=== PATIENT | female | born 1995 | race Caucasian/White ===

== ENCOUNTER 2024-05-31 14:37 | Outpatient (CLI) | payer OTHER, SELFPAY ==
--- NOTE | 2024-05-31 16:35 | WPDPFTINT ---
PFT Procedure Performed PFT Procedure Performed Spirometry with Pre/Post Bronchodilator Plethysmography (Lung Vol) Diffusing Cap (DLCO) Flow Vol Loop PFT Interpretation This is a pulmonary function test with pre and post-bronchodilator spirometry, plethysmography and diffusing capacity. The test was performed and results interpreted in accordance with the 2019 and 2005 ATS/ERS Task Force guidelines respectively using the Global Lung Function Initiative-2012 reference equations. Patient demonstrated good effort and cooperation. Reproducibility criteria were met. The quality of the pre bronchodilator spirometry maneuver was Grade A and post bronchodilator spirometry maneuver was Grade A. Findings: Spirometry: The contour the inspiratory and expiratory flow tracing are normal. The pre bronchodilator FVC is 3.46 L, 101% predicted. The pre bronchodilator FEV1 is 2.84 L, 97% predicted. The pre bronchodilator FEV1: FVC ratio is 82%. The post bronchodilator FVC is 3.47 L, representing 1% increase. The post bronchodilator FEV1 is 2.39 L, representing a 16% decrease. The post bronchodilator FEV1: FVC ratio 69%. Plethysmography: The total lung capacity is 4.09 L, 89% predicted. The functional residual capacity is 1.17 L, 47% predicted. The residual volume is 0.56 L, 46% predicted. Diffusing capacity: The diffusing capacity unadjusted for hemoglobin and carboxyhemoglobin is 19.2, 81% predicted. The diffusing capacity adjusted for alveolar volume is 4.90, 97% predicted. Impression: The spirometry is normal without evidence of an obstructive abnormality. There is no significant improvement after inhaling a single dose of albuterol. The total lung capacity and residual volume are normal with a decreased functional residual capacity. This is an abnormal but nonspecific lung volume pattern. The diffusing capacity is normal. There are no prior studies for comparison
== END 2024-05-31 14:38 | disposition home or self-care (01) ==
PROVIDERS: PCP Internal Medicine; Visit Provider Physician Assistant
DX: J45.909 Unspecified asthma, uncomplicated (principal)
CPT/HCPCS: 94060; 94726; 94729

== ENCOUNTER 2024-09-24 08:52 | Emergency (ER) | payer OTHER, SELFPAY ==
[2024-09-24] VITALS (14 sets, daily range): BP systolic 115–146; BP diastolic 64–91; PULSE 90–119; RESP 14–21; TEMP 36.8; O2SAT 97–100
--- NOTE | ~2024-09-24 | CT_ITS ---
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 The dose-length product was 700.92 mGy-cm. Maximum intensity projection 3D-re constructions of the aorta and other arteries were constructed by the technologist on a separate work station. COMPARISON: None. FINDINGS/OBSERVATIONS: PULMONARY ARTERIES: No filling defect is identified within the main or proximal pulmonary artery. The main pulmonary artery is not enlarged. THORACIC AORTA: No aneurysmal dilatation or dissection is present. The great vessels are intact LUNGS: The lungs are clear. MEDIASTINUM: No morphologically suspicious or pathologically enlarged lymph nodes are identified with in the mediastinum or bilateral axilla. BONES OF THE CHEST: No acute fracture. No significant degenerative disease. No lytic or blastic lesions. HEART: The heart is of normal size, without pericardial effusion. IMPRESSION: No pulmonary embolus. No thoracic aortic dissection. The lungs are clear. Reviewed, dictated and finalized at location A. OOD PATCHER
--- NOTE | ~2024-09-24 | XR_ITS ---
CHEST RADIOGRAPH, PA AND LATERAL CLINICAL HISTORY: CHEST PAIN AND SOB . COMPARISON: None available TECHNIQUE: PA and lateral views of the chest. FINDINGS The cardiomediastinal silhouette is unremarkable. The lungs are clear. Visualized osseous structures and soft tissues are unremarkable. IMPRESSION: No focal infiltrate or effusion. Reviewed, dictated and finalized at location A. 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
--- NOTE | 2024-09-24 08:54 | ECG_ITS ---
Test Date: 2024-09-24 08:59:27 Measurements Intervals [place] Rate: 117 P: 62 CT: 110 QRS: -1 QRSD: 104 T: 20 QT: 327 QTc: 456 Interpretive Statements SINUS TACHYCARDIA WITH SHORT CT INTERVAL BORDERLINE R WAVE PROGRESSION, ANTERIOR LEADS MINIMAL Q WAVES- HIGH LATERAL LEADS BORDERLINE ST-T WAVE ABNORMALITY- ANT/INF LEADS ABNORMAL ECG No previous ECG available for comparison Electronically Signed On 09-24-2024 09:30:44 CERTIFIED NURSE PRACTITIONER by Jony Hardy D.O.
--- OUTSIDE RECORDS SUMMARY | 2024-09-24 08:54 | XMS_ITS | Clinical Summary ---
Author Organization [facility] Address [address] [place] [address] Care Team Providers Care Global Supply Chain Director Name Role Phone Teresa Cedeno MD Unavailable [phone] Teresa Cedeno MD Unavailable [phone] Nilda Franz Primary Care Pr ovider Allergies No known active allergies Medications vit 98-oxqt-icipp-dha 27mg iron- 800 mcg-250 mg capsule Take by mouth Active albuterol (PROAIR RESPICLICK) 90 mcg/actuation inhaler Inhale 2 puffs every 6 (six) hours as needed for wheezing Active acetaminophen (TYLENOL) 325 mg tabletIndications:P ain Take 2 tablets (650 mg total) by mouth every 4 (four) hours as needed for pain 30 tablet 2 Active docusate sodium (COLACE) 100 mg capsuleIndications: constipation,Stool Softener Take 1 capsule (100 mg total) by mouth 2 (two) times a day 2 Active ibuprofen (ADVIL,MOTRIN) 600 mg tabletIndications:C ramps Take 1 tablet (600 mg total) by mouth every 6 (six) hours as needed for pain 2 Active oxyCODONE (ROXICODONE) 5 mg immediate release tabletIndications:P ain Take 1 tablet (5 mg total) by mouth every 4 (four) hours as needed for pain 0 2 Active polyethylene glycol (MIRALAX) 17 gram packetIndications:c onstipation Take 1 packet (17 g total) by mouth daily 2 Active sertraline (ZOLOFT) 50 mg tablet Take 1 tablet (50 mg total) by mouth daily 90 tablet 3 3 Active ondansetron ODT (ZOFRAN-ODT) 4 mg disintegrating tablet Take 1 tablet (4 mg total) by mouth every 8 (eight) hours as needed for nausea or vomiting 20 tablet 1 3 Active Active Problems Problem Noted Date Diagnosed Date 39 weeks gestation of 06/01/2022 Contusion of heel 03/07/2009 Immunizations Immunization Administration Dates Next Due Pfizer SARS-CoV-2 Monovalent Vaccination (12+ Yrs) PURPLE 09/06/2020,08/16/2020 Surgical History Surgery Date Site/Laterality Comments WISDOM TOOTH EXTRACTION Bilateral Medical History Medical History Date Comments Asthma Anxiety Depression Vaginismus Social History Tobacco Use Types Packs/Day Years Used Date Smoking Tobacco: Never Passive Smoke Exposure: Never Smokeless Tobacco: Never Tobacco Cessation:Counseling Given: Not Answered Alcohol Use Standard Drinks/Week Comments Yes 0 (1 standard drink = 0.6 oz pur e alcohol) socially AUDIT-C Answer Date Recorded Q1: How often do you have a drink containing alcohol? Never 06/01/2022 Q2: How many drinks containi ng alcohol do you have on a typical day when you are drinking? Patient does not drink Q3: How often do you have si x or more drinks on one occasion? Never 06/01/2022 Sterling Depression Scale Answer Date Recorded Sterling Depression Scale Total 7 06/05/2022 The thought of harming myself has occurred to me . Never 06/05/2022 Personal Safety Answer Date Recorded Have you ever been in or are you currently in a harmful physical or emotional relationship or is someone making you feel afraid or unsafe? 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 ATTENDANT Gender Identity Not on file Sexual Orientation Not on file Obstetrics History Para Term AB IAB SAB Ectopic Multiple Livin g Live Births 1 1 1 0 1 1 Date Outcome GA Total Labor Labor/2nd/3rd Weight Sex Type Anes PTL Lauren A1 A5 Name Clin 022 Term 39w 1d 0h 01m 0h 01m 4.14 kg (9 lb 2 oz) F CS-LT ranv Epidu ral,C ombin ed Spina l/Epi dural N Livin g 9 9 NEMSK Y,GIR LBROO KE Syedatic Zackary gilbert MD Complications:Failure to Pro dylon in First Stage Delivery Location:This Facil ity ([facility]) Last Filed Vital Signs Vital Sign Reading Time Taken Comments Blood Pressure 143/90 02/08/2024 3:10 PM CDT Pulse 96 02/08/2024 3:10 PM CDT Temperature 36.4 C (97.5 F) 02/08/2024 12:23 PM CDT Respiratory Rate 18 02/08/2024 3:10 PM CDT Oxygen Saturation 100% 02/08/2024 3:10 PM CDT Inhaled Oxygen Concentration - - Weight 93 kg (205 lb) 02/08/2024 12:23 PM CDT Height 154.9 cm (5' 1 ) 06/01/2022 4:58 PM CDT Body Mass Index 38.73 06/01/2022 4:58 PM CDT Plan of Treatment Health Maintenance Due Date Last Done Comments Hepatitis C Screening 1995 DTaP/Tdap/Td Vaccine (1 - Tdap) 2005 Varicella Vaccines (1 of 2 - 13+ 2-dose series) 2007 Hepatitis B Screening 2012 Regular Well Visit/Exam 18-64 2012 Cervical Cancer Screening 11/04/2022 11/04/2021 Depression Screening 06/05/2023 06/05/2022 Covid-19 Vaccine (4 - 2023-2 5 season) 2024 07/22/2021, 09/06/2020, 08/16/2020 Influenza Vaccine (#1) 2024 HPV Vaccines Aged Out No longer eligi ble based on patient's age to complete this topic Pneumococcal vaccine <65 Aged Out No longer eligible based on patient's age to complete this topic Procedures Procedure Name Priority Date/Time Associated Diagnosis Comments PAP WITH REFLEX TO HIGH RISK HPV Routine 11/04/2021 2:38 PM CDT from Last 3 Months or Most Recently Relevant to Health Maintenance Results * Pap with reflex to High Risk HPV (11/04/2021 2:38 PM CDT) Pap test 11/04/2021 2:38 PM CDT 11/06/2021 2:28 PM CDT Narrative 11/09/2021 2:05 PM CDT EPIC results best viewed via link to PDF [address] [address] Tele: Louise Mensah MD - Multiple Punch Press Operator CYTOLOGY REPORT Note to Patients: This report may contain a detailed description of human tissue sent by a health care provider to the laboratory for pathologic evaluation. The content of this report is essential for diagnosis and may provide important critical findings. This information may be unfamiliar to patients to review without a medical professional present. It is advised that the patient review this report in the presence of a health care provider who can answer questions and explain the details. Patient Name: DEVORAH MADRIGAL Address: [address] [place] [address] Gender: F : 1995 (Age: 26) Service: Location: [facility] : [id number] [facility] #: [id number] Patient Type: [facility] SPECIMEN Taken: 11/04/2021 Reported: 11/09/2021 Physician(s): Teresa Cedeno M.D. FINAL DIAGNOSIS: Specimen Type: - ThinPrep Pap w/ reflex HPV Statement of Specimen Adequacy: Source: Cervical/Endocervical - Satisfactory for interpretation - Endocervical/Transformation zone component absent or insufficient - Scant Cellularity - Case screened using computer assisted imaging technology General Categorization: - Negative for intraepithelial lesion or malignancy jat/11/09/2021 14:05 TONY Medrano (ASCP) Report Reviewed and Electronically Signed By TONY Medrano (ASCP) Clerical Data Follow A; [id number] CLINICAL DIAGNOSIS AND HISTORY Last Menstrual Period: 09/01/21 REPORT IMAGES AND/OR SCANNED DOCUMENTS ONLY VIEWABLE IN PDF FORMAT The Pap test is a screening test used to aid in the detection of cervical cancer and its precursors. It should not be the sole means by which malignant and premalignant lesions are diagnosed. Both false negative and false positive results may occur. It also has poor sensitivity for the detection of endometrial lesions and should not be used to evaluate suspected endometrial abnormalities. For these reasons it is most important to obtain Pap tests at regular intervals, as recommended by your physician or nurse practitioner. Teresa Cedeno MD LAB CYTOLOGY ORDERAB LES Final Result from Last 3 Months or Most Recently Relevant to Health Maintenance Insurance [facility] [employer] Advance Directives For more information, please contact: [phone] * Full Code (Latest Code Status on File) Date Activated Date Inactivated Comments 06/02/2022 4:58 PM 06/06/2022 4:29 PM * Full Code Date Activated Date Inactivated Comments 06/01/2022 5:01 PM 06/02/2022 4:58 PM Full CPR in case of cardiopulmonary arrest Care Teams Global Supply Chain Director Relationship Specialty Start Date End Date Nilda Franz PA [address] [place] [address] PCP - General 11/25/23 Teresa Cedeno MD [address] [place] [address] Consulting Physician Obstetrics and Gynecology 06/05/22 Teresa Cedeno MD [address] [place] [address] Consulting Physician Obstetrics and Gynecology 06/11/23
--- OUTSIDE RECORDS SUMMARY | 2024-09-24 08:54 | XMS_ITS | Patient Health Summary ---
Author Organization [facility] Address [address] [place] [address] Care Team Providers Care Merchandise Displayer Name Role Phone Idalia Angel MD Primary Care Provider [phone] [facility],non-owned Affiliates and Associated Physician Practices is amultiple site organization consisting of ambulatory clinics and hospital sitesin [place], [place], [place] and [place]. This disclosure is being madepursuant to the Care Everywhere program and may not contain all information available regarding this patient. Last updated 18.[facility] Allergies No known active allergies Medications * Be aware that medications may not be up to date on this document. Alwaysverify current medications with the patient. * albuterol HFA (PROVENTIL;VENTOLIN;PROAIR) 108 (90 BASE) MCG/ACT inhaler (Started 06/19/2013) Inhale 2 Puffs by mouth every 4 hours as needed for Shortness of Breath or Wheezing. * ALPRAZolam (XANAX PO) * Albuterol Sulfate 108 (90 BASE) MCG/ACT * Norethin Enrique-Eth Estrad-FE (TAYTULLA) 1-20 MG-MCG(24) CAPS * buPROPion SR 12hr (WELLBUTRIN SR) 150 MG tablet Take 150 mg by mouth 2 times daily Social History Tobacco Use Types Packs/Day Years Used Date Smoking Tobacco: Never Smokeless Tobacco: Never Alcohol Use Standard Drinks/Week Comments No 0 (1 standard drink = 0.6 oz pur e alcohol) Sex and Gender Information Value Date Recorded Sex Assigned at Not on file Gender Identity Not on file Sexual Orientation Not on file Last Filed Vital Signs Vital Sign Reading Time Taken Comments Blood Pressure 112/76 09/17/2019 12:11 PM IRONWORKER APPRENTICE SHOP Pulse 94 09/17/2019 12:11 PM IRONWORKER APPRENTICE SHOP Temperature 36.9 C (98.4 F) 09/17/2019 12:11 PM IRONWORKER APPRENTICE SHOP Respiratory Rate 17 09/17/2019 12:11 PM IRONWORKER APPRENTICE SHOP Oxygen Saturation 98% 09/17/2019 12:11 PM IRONWORKER APPRENTICE SHOP Inhaled Oxygen Concentration - - Weight 79.4 kg (175 lb) 09/17/2019 12:11 PM IRONWORKER APPRENTICE SHOP Height 154.9 cm (5' 1 ) 09/17/2019 12:11 PM IRONWORKER APPRENTICE SHOP Body Mass Index 33.07 09/17/2019 12:11 PM IRONWORKER APPRENTICE SHOP Procedures * INFLUENZA A+B - POINT OF CARE (AMB)(Performed 09/17/2019) Performed for Influenza B * STREP A SCREEN - POINT OF CARE (AMB) STL(Performed 01/18/2018) Performed for Acute streptococcal pharyngitis * STREP A SCREEN - POINT OF CARE (AMB) STL(Performed 12/21/2017) Performed for Acute streptococcal pharyngitis * STREP A SCREEN - POINT OF CARE (AMB) STL(Performed 11/01/2017) Performed for Nasopharyngitis acute * STREP A SCREEN - POINT OF CARE (AMB) STL(Performed 08/11/2017) Performed for Acute streptococcal pharyngitis * INFLUENZA A+B - POINT OF CARE (AMB)(Performed 08/11/2017) Performed for Acute streptococcal pharyngitis * STREP A SCREEN - POINT OF CARE (AMB) STL(Performed 07/09/2017) Performed for Acute streptococcal pharyngitis * STREP A SCREEN - POINT OF CARE (AMB) STL(Performed 01/14/2017) Performed for Acute streptococcal pharyngitis * EKG 12-LEAD(Performed 06/19/2013) Performed for Cough * XR CHEST 2VW(Performed 06/19/2013) Performed for Cough * D-DIMER(Performed 06/19/2013) * CBC W AUTO DIFFERENTIAL(Performed 06/19/2013) * HCG URINE QUALITATIVE - POINT OF CARE(Performed 06/19/2013) Results * (ABNORMAL) INFLUENZA A+B - POINT OF CARE (AMB) (09/17/2019) Only the most recent of2 resultswithin the time period is included. Influenza A Antigen Rapid Negative Negative Influenza B Antigen Rapid Positive(A) Negative Influenza Internal Control PRESENT NEGATIVE - POSITIVE Influenza Lot Number [id number] Influenza Expiration Date 06/20/2020 Other NASOPHARYNGEAL SWAB / Unknown 09/17/2019 Malika Faulkner [facility] - POINT OF CARE ORDERABLES * (ABNORMAL) STREP A SCREEN - POINT OF CARE (AMB) STL (01/18/2018) Only the most recent of6 resultswithin the time period is included. Pathologist [facility] Strep A Rapid POCT Positive(A) Negative Strep A Internal Control Present Lot # [id number] Expiration Date 07/21/19 Throat ENTIRE THROAT (SURFACE REGION OF NECK) / Unknown 01/18/2018 [facility] POINT [facility]ARE ORDERABLES * EKG 12-LEAD (06/19/2013 12:30 PM IRONWORKER APPRENTICE SHOP) Ventricular Rate 81 BPM [facility] Atrial Rate 81 BPM [facility] P-R Interval 102 ms [facility] QRS Duration ms 92 ms [facility] Q-T Interval ms 396 ms [facility] QTC Calculation (Bezet) 460 ms [facility] Calculated P Ethan 13 degrees [facility] Calculated R Ethan 62 degrees [facility] Calculated T Ethan 26 degrees [facility] Interpretation EKG Sinus rhythm with short ME Otherwise normal ECG No previous ECGs available Confirmed by MD PAO, DOV ([id number]) on 06/19/2013 3:38:10 PM [facility] 06/19/2013 12:3 0 PM IRONWORKER APPRENTICE SHOP 06/19/2013 3:38 PM IRONWORKER APPRENTICE SHOP Narrative [facility] - 06/19/2013 3:38 PM IRONWORKER APPRENTICE SHOP Procedure Note Document, Scanned - 06/19/2013 3:37 PM CST Transcriptions Document, Scanned - 06/19/2013 3:39 PM CST Marlene SANDOVAL-C ECG ORDERABLES [facility] * CXR - PA & LATERAL (06/19/2013 12:03 PM IRONWORKER APPRENTICE SHOP) Anatomical Region Laterality Modality Chest Radiographic Melinda ging 06/19/2013 12:0 4 PM IRONWORKER APPRENTICE SHOP Impressions 06/19/2013 12:05 PM IRONWORKER APPRENTICE SHOP No acute disease in the chest. Narrative 06/19/2013 12:05 PM IRONWORKER APPRENTICE SHOP PA AND LATERAL CHEST INDICATION: Cough shortness of breath FINDINGS: The lungs are clear. The mediastinal contour and heart size are within normal limits. The pulmonary vascularity is normal. The osseous structures are unremarkable. Procedure Note Era Stovall MD - 06/19/2013 PA AND LATERAL CHEST INDICATION: Cough shortness of breath FINDINGS: The lungs are clear. The mediastinal contour and heart size are within normal limits. The pulmonary vascularity is normal. The osseous structures are unremarkable. IMPRESSION No acute disease in the chest. Marlene [facility] O RDERABLES * D-DIMER (06/19/2013 11:55 AM IRONWORKER APPRENTICE SHOP) D-Dimer 0.43 0 - 0.5 mg/L FEU 06/19/2013 12:13 PM IRONWORKER APPRENTICE SHOP [facility] Blood BLOOD SPECIMEN / Unknown 06/19/2013 11:55 AM IRONWORKER APPRENTICE SHOP 06/19/2013 11:58 AM IRONWORKER APPRENTICE SHOP Narrative [facility] - 06/19/2013 12:13 PM IRONWORKER APPRENTICE SHOP The innovance D-dimer assay now in use at [facility], [facility] and [facility] is intended for use as an aid in diagnosis of venous thromboembolism [(VTE): deep vein thrombosis (DVT), pulmonary embolism (PE), and disseminated intravascular coagulation (DIC)], and has received FDA approval to exclude VTE in patients with low or moderate pretest probability of PE or DVT (per Wells' rules). At a clinical cut-off value 0.50 mg/L FEU, the Negative Predictive Value of this assay is 99.8% for excluding PE and 100% for excluding DVT. A very low percentage of patients with VTE may yield D-dimer results below cut- off value. An elevated D-dimer result has low specificity (40.4% for PE, 35.5% for DVT) and is a poor predictor of VTE. An elevated D-dimer result may indicate DIC in the appropriate clinical setting. Results of this test should always be interpreted in conjunction with the patient's medical history, clinical presentation, and other findings. Marlene Richard PA-C LAB - COAGULATION OR DERABLES Performing Organization Address City/State/[facility] Co de Phone Number [facility] [address] [place] [address] * (ABNORMAL) CBC W AUTO DIFFERENTIAL (06/19/2013 11:55 AM IRONWORKER APPRENTICE SHOP) WBC 6.3 4.5 - 11.0 x10^9/L 06/19/2013 12:11 PM [facility] RBC 4.20 4.10 - 5.10 x10^12/L 06/19/2013 12:11 PM [facility] Hemoglobin 12.8 12.0 - 16.0 gm/dL 06/19/2013 12:11 PM [facility] Hematocrit 35.0(L) 36.0 - 47.0 % 06/19/2013 12:11 PM [facility] MCV 83.3 78.0 - 102.0 fl 06/19/2013 12:11 PM [facility] MCH 30.5 25.0 - 35.0 pg 06/19/2013 12:11 PM [facility] MCHC 36.6 31.0 - 37.0 gm/dL 06/19/2013 12:11 PM [facility] Platelet Count 248 100 - 400 x10^9/L 06/19/2013 12:11 PM [facility] RDW-CV 11.7 11.5 - 14.0 % 06/19/2013 12:11 PM [facility] MPV 9.2 6.0 - 9.5 fl 06/19/2013 12:11 PM [facility] Neutrophils % 55.4 31.0 - 78.0 % 06/19/2013 12:11 PM IRONWORKER APPRENTICE SHOP [facility] Lymphocytes % 34.7 13.0 - 54.0 % 06/19/2013 12:11 PM IRONWORKER APPRENTICE SHOP [facility] Monocytes % 5.9 4.0 - 13.0 % 06/19/2013 12:11 PM IRONWORKER APPRENTICE SHOP [facility] Eosinophils % 3.3 0.0 - 8.0 % 06/19/2013 12:11 PM IRONWORKER APPRENTICE SHOP [facility] Basophils % 0.5 % 06/19/2013 12:11 PM IRONWORKER APPRENTICE SHOP [facility] Immature Granulocytes 0.2 % 06/19/2013 12:11 PM IRONWORKER APPRENTICE SHOP [facility] Neutrophil Absolute 3.49 x10^9/L 06/19/2013 12:11 PM IRONWORKER APPRENTICE SHOP [facility] Lymphocytes Absolute 2.18 x10^9/L 06/19/2013 12:11 PM IRONWORKER APPRENTICE SHOP [facility] Monocytes Absolute 0.37 x10^9/L 06/19/2013 12:11 PM IRONWORKER APPRENTICE SHOP [facility] Eosinophils Absolute 0.21 x10^9/L 06/19/2013 12:11 PM IRONWORKER APPRENTICE SHOP [facility] Basophils Absolute 0.03 x10^9/L 06/19/2013 12:11 PM IRONWORKER APPRENTICE SHOP [facility] Immature Granulocytes Absolute 0.01 x10^9/L 06/19/2013 12:11 PM IRONWORKER APPRENTICE SHOP [facility] Blood BLOOD SPECIMEN / Unknown 06/19/2013 11:55 AM IRONWORKER APPRENTICE SHOP 06/19/2013 11:58 AM IRONWORKER APPRENTICE SHOP Marlene Richard PA-C LAB - HEMATOLOGY ORD ERABLES [facility] [address] [place] [address] * HCG URINE QUALITATIVE - POINT OF CARE (IP) (06/19/2013 11:54 AM IRONWORKER APPRENTICE SHOP) HCG Qual Urine Negative Negative [facility] PO[facility] QC Verified yes Yes [facility] POC T TESTING Urine specimen (specimen) URINE / Unknown 06/19/2013 11:54 AM IRONWORKER APPRENTICE SHOP Marlene Richard PA-C LAB - POINT OF CARE ORDERABLES Performing Organization Address City/[facility]/ZIP Co de Phone Number [facility] [address] [place] [address] Care Teams Merchandise Displayer Relationship Specialty Start Date End Date Idalia Angel MD PCP - General Economics Faculty Member 09/17/19
--- OUTSIDE RECORDS SUMMARY | 2024-09-24 08:54 | XMS_ITS | Clinical Summary ---
Author Organization [facility] Address [facility] [place] [address] Care Team Providers Care Detail Drafter Name Role Phone Idalia Angel MD Primary Care Provider [phone] Allergies No known active allergies Medications desvenlafaxine ER 50 MG 24 hr tablet Take 50 mg by mouth daily. Active Family History Medical History Relation Comments Hyperlipidemia Father Hypertension Father Hyperlipidemia Mother Relation Status Comments Father Mother Social History Tobacco Use Types Packs/Day Years Used Date Smoking Tobacco: Never Smokeless Tobacco: Never Alcohol Use Standard Drinks/Week Comments Yes 0 (1 standard drink = 0.6 oz pur e alcohol) AUDIT-C Answer Date Recorded Q1: How often do you have a drink containing alc ohol? Never 08/03/2020 Average Number of Drinks Not on file 020 Frequency of Binge Drinking Not on file 07/10 Comments No Sex and Gender Information Value Date Recorded Sex Assigned at Not on file Legal Sex Female 9:17 AM LANG PATH THERAPIST Gender Identity Not on file Sexual Orientation Not on file Last Filed Vital Signs Vital Sign Reading Time Taken Comments Blood Pressure 151/88 08/03/2020 9:36 AM LANG PATH THERAPIST Pulse 84 08/03/2020 9:36 AM LANG PATH THERAPIST Temperature 36.8 C (98.2 F) 08/03/2020 9:36 AM LANG PATH THERAPIST Respiratory Rate 16 08/03/2020 9:36 AM LANG PATH THERAPIST Oxygen Saturation 98% 08/03/2020 9:36 AM LANG PATH THERAPIST Inhaled Oxygen Concentration - - Weight 81.6 kg (180 lb) 08/03/2020 9:36 AM LANG PATH THERAPIST Height 154.9 cm (5' 1 ) 08/03/2020 9:36 AM LANG PATH THERAPIST Body Mass Index 34.01 08/03/2020 9:36 AM LANG PATH THERAPIST Plan of Treatment Health Maintenance Due Date Last Done Comments Cervical Cancer Screening Pa p Smear (Age 30 to 64) Every 3 Years 1994 Annual Physical 1997 Hepatitis C 2012 DTaP, Tdap and Td Vaccines ( 1 - Tdap) 2013 Hepatitis B Vaccines (1 of 3 - 19+ 3-dose series) 2013 COVID-19 Vaccine ( - 2023-2 5 season) 2024 Influenza Adult (#1) 2024 Cervical Cancer Screening Pa p with HPV Testing (Age 30 to 64) Every 5 Years 2024 Cervical Cancer Screening with HPV 2024 HPV Vaccines Aged Out No longer eligi ble based on patient's age to complete this topic Meningococcal B Vaccine Aged Out No l onger eligible based on patient's age to complete this topic Meningococcal Vaccine Aged Out No demetrio piotr eligible based on patient's age to complete this topic Pneumococcal Vaccine: Pediat rics (0 to 5 Years) and At-Risk Patients (6 to 64 Years) Aged Out No longer eligible b ased on patient's age to complete this topic RSV Immunizations Under 20 Months Aged Out No longer eligible based on patient's age to complete this topic Insurance [employer] Care Teams Detail Drafter Relationship Specialty Start Date End Date Idalia Angel MD [address] [facility] [address] [place] [address] PCP - General MILIEU THERAPIST 08/03/20
--- OUTSIDE RECORDS SUMMARY | 2024-09-24 08:54 | XMS_ITS | Referral Summary ---
Author Organization [facility] Address [address] [place] [address] Care Team Providers Care Reel Winder Name Role Phone Teresa Cedeno MD Unavailable [phone] Teresa Cedeno MD Unavailable [phone] Nilda Franz Primary Care Pr ovider Allergies No known active allergies Medications vit 80-wntk-lkbhe-dha 27mg iron- 800 mcg-250 mg capsule Take [...] SARS-CoV-2 Monovalent Vaccination (12+ Yrs) PURPLE 09/06/2020,08/16/2020 Social History Tobacco Use Types Packs/Day Years [...] more drinks on one occasion? 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 Patient Name: DEVORAH MADRIGAL Address: [address] [place] [address] Gender: F : 1995 (Age: 26) Service: Location: N : [id number] [facility] #: [id number] Patient Type: [facility] SPECIMEN Taken: 11/04/2021 Reported: 11/09/2021 Physician(s): Teresa [...] Most Recently Relevant to Health Maintenance Insurance [facility] EMPLOYEE Team [employer] Address: [facility] [id number] [place] [address] Advance Directives For more information, please contact: [phone] * Full Code (Latest Code Status on File) Date Activated Date Inactivated Comments 06/02/2022 4:58 PM 06/06/2022 4:29 PM * Full Code Date Activated Date Inactivated Comments 06/01/2022 5:01 PM 06/02/2022 4:58 PM Full CPR i n case of cardiopulmonary arrest Care Teams Reel Winder Relationship Specialty Start Date End Date Nilda Franz PA [address] [place] [address] PCP - General 11/25/23 Teresa Cedeno MD [address] [place] [address] Consulting Physician Obstetrics and Gynecology 06/05/22 Teresa Cedeno MD [id number] [place] [address] Consulting Physician Obstetrics and Gynecology 06/11/23
--- OUTSIDE RECORDS SUMMARY | 2024-09-24 08:54 | XMS_ITS | Clinical Summary ---
Author Organization [facility] Address [address] [place] [address] Care Team Providers Care Software Engineer Sales Name Role Phone Idalia Angel MD Primary Care Provider [phone] Source Comments [facility],non-owned Affiliates and Associated Physician Practices is amultiple site organization consisting of ambulatory clinics and hospital sitesin [place], [place], [place] and [place]. This disclosure is being madepursuant to the Care Everywhere program and may not contain all information available regarding this patient. Last updated 18.[facility] Allergies No known active allergies Medications * Be aware that medications may not be up to date on this document. Alwaysverify current medications with the patient. Medication Sig Dispensed Refills Start Date End Date Status albuterol HFA (PROVENTIL;VENTOLIN; PROAIR) 108 (90 BASE) MCG/ACT inhaler Inhale 2 Puffs by mouth every 4 hours as needed for Shortness of Breath or Wheezing. 1 Inhaler 0 06/19/2013 Active ALPRAZolam (XANAX PO) Active Albuterol Sulfate 108 (90 BASE) MCG/ACT Active Norethin Enriqeu-Eth Estrad-FE (TAYTULLA) 1-20 MG-MCG(24) CAPS Acti ve buPROPion SR 12hr (WELLBUTRIN SR) 150 MG tablet Take 150 mg by mouth 2 times daily Active Social History Tobacco Use Types Packs/Day Years [...] Comments Blood Pressure 112/76 09/17/2019 12:11 PM CARDIOLOGY NURSE PRACTITIONER Pulse 94 09/17/2019 12:11 PM CARDIOLOGY NURSE PRACTITIONER Temperature 36.9 C (98.4 F) 09/17/2019 12:11 PM CARDIOLOGY NURSE PRACTITIONER Respiratory Rate 17 09/17/2019 12:11 PM CARDIOLOGY NURSE PRACTITIONER Oxygen Saturation 98% 09/17/2019 12:11 PM CARDIOLOGY NURSE PRACTITIONER Inhaled Oxygen Concentration - - Weight 79.4 kg (175 lb) 09/17/2019 12:11 PM CARDIOLOGY NURSE PRACTITIONER Height 154.9 cm (5' 1 ) 09/17/2019 12:11 PM CARDIOLOGY NURSE PRACTITIONER Body Mass Index 33.07 09/17/2019 12:11 PM CARDIOLOGY NURSE PRACTITIONER Plan of Treatment Health Maintenance Due Date Last Done Comments PAP SMEAR 1995 HIV SCREENING 2009 HEPATITIS C SCREENING 08/19/2012 DTAP/TDAP/TD VACCINES (1 - Tdap) 2013 HEPATITIS B VACCINE (1 of 3 - 19+ 3-dose series) 2013 COVID-19 VACCINE ( - 2023-2 5 season) 2024 INFLUENZA VACCINE (#1) 2024 DEPRESSION SCREENING 08/09/2024 ZOSTER VACCINE (1 of 2) 2044 HIB VACCINE Aged Out No longer eligi ble based on patient's age to complete this topic HPV VACCINE Aged Out No longer eligi ble based on patient's age to complete this topic MENINGOCOCCAL (Group B) VACCINE Aged Out No longer eligible based on patient's age to complete this topic MENINGOCOCCAL VACCINE Aged Out No demetrio piotr eligible based on patient's age to complete this topic PNEUMOCOCCAL VACCINE Aged Out No long er eligible based on patient's age to complete this topic Care Teams Software Engineer Sales Relationship Specialty Start Date End Date Idalia Angel MD PCP - General Inspector Wire Products 09/17/19
--- OUTSIDE RECORDS SUMMARY | 2024-09-24 08:54 | XMS_ITS | Referral Summary ---
Author Organization [facility] Address [address] [place] [address] Care Team Providers Care Executive Secretary Social Welfare Name Role Phone Idalia Angel MD Primary Care Provider [phone] Source Comments [facility],non-owned Affiliates and Associated Physician Practices is amultiple site organization consisting of ambulatory clinics and hospital sitesin [place], [place], [place] and [place]. This disclosure is being madepursuant to the Care Everywhere program and may not contain all information available regarding this patient. Last updated 18.[facility] [employer] Allergies No known active allergies Medications * [...] Sulfate 108 (90 BASE) MCG/ACT Active Norethin Enrique-Eth Estrad-FE (TAYTULLA) 1-20 MG-MCG(24) CAPS Acti ve [...] Comments Blood Pressure 112/76 09/17/2019 12:11 PM CIRCUS TRAIN SUPERVISOR Pulse 94 09/17/2019 12:11 PM CIRCUS TRAIN SUPERVISOR Temperature 36.9 C (98.4 F) 09/17/2019 12:11 PM CIRCUS TRAIN SUPERVISOR Respiratory Rate 17 09/17/2019 12:11 PM CIRCUS TRAIN SUPERVISOR Oxygen Saturation 98% 09/17/2019 12:11 PM CIRCUS TRAIN SUPERVISOR Inhaled Oxygen Concentration - - Weight 79.4 kg (175 lb) 09/17/2019 12:11 PM CIRCUS TRAIN SUPERVISOR Height 154.9 cm (5' 1 ) 09/17/2019 12:11 PM CIRCUS TRAIN SUPERVISOR Body Mass Index 33.07 09/17/2019 12:11 PM CIRCUS TRAIN SUPERVISOR Plan of Treatment Not on file Care Teams Executive Secretary Social Welfare Relationship Specialty Start Date End Date Idalia Angel MD PCP - General Clinical Laboratory Scientist 09/17/19
--- OUTSIDE RECORDS SUMMARY | 2024-09-24 08:54 | XMS_ITS | Data Portability ---
Author Organization [facility] SIVAAlma Rosa Jiménez Address [address] [place] [address] Care Team Providers Care Computer Instructor Name Role Phone CHYNAGREGORY GUTIERRES Primary Care Provider Unavailab le Assessment No assessment recorded. Plan of Treatment Reminders Order Date Submit Date Provider Last Modified By Organization Details Last Modified Time Details Appointments None recorded. Lab TSH + free T4, serum 2023 024 [facility], [address], [place], [address], 4 09:33:45 lipid panel, serum 2023 024 [facility] Orders [facility], [address], [place], [address], 4 09:33:45 CBC w/ auto diff 2023 024 [facility] Orders [facility], [address], [place], [address], 4 09:33:45 CMP, serum or plasma 2023 024 [facility], [address], [place], [address], 4 13:00:22 vitamin B12 + folate, serum or blood 2023 024 [facility] Orders [facility], [address], [place], [address], 4 09:33:45 HbA1c (hemoglobin A1c), blood 2023 [facility] Orders [facility], [address], [place], [address], 4 09:33:45 insulin, serum 2023 024 [facility] Orders [facility], [address], [place], [address], 4 09:33:45 Referral None recorded. Procedures None recorded. Surgeries None recorded. Imaging PFT, complete - with and without bronchodila tor 2023 [facility]), [address] [place], [place] [address]e [facility], [place], [address], 4 14:49:03 Medication Orders Symbicort 160 mcg-4.5 mcg/actuati on HFA aerosol inhaler 2023 [facility] #[id number], [address], [place], [place], [id number], 4 13:01:58 amoxicillin 875 mg tablet 2023 024 [email or web address] [facility] #[id number], [address], [place], [place], [id number], 5 16:28:49 Medrol (Bart) 4 mg tablets in a dose pack 2023 024 [facility] #[id number], [address] , [place], [place], [id number], 4 12:35:22 Patient TargetsNo targets recorded. Patient Instructions Encounter Date Encounter Id Patient Instructions Last Modified By Organization Details Last Modified Time 11/25/2023 [id number] A healthy lifestyle: care instructions [email or web address] Not available 12/07/2023 20:13:45 Reason for Referral None Reported. Results Created Date Observation Date Name Description Value Unit Range Abnormal Flag Note LastModifiedBy Organization Detail LastModifiedTime 05/30/2005/31/2024 TSH+F REE T4 TSH 2.480 uIU/m L 0.450- 4.500 Not Available [facility] ([facility]) [address] [place], [address], 05/31/2024 08:31:26 05/30/20 24 05/31/2024 TSH+F REE T4 T4,free(dire ct) 1.00 NG/dL 0.82-1 .77 Not Available [facility] ([facility]) [address] [place], [address], 05/31/2024 08:31:26 05/30/2005/31/2024 COMP. METAB OLIC PANEL (14) glucose 75 mg/dL 70-99 Not Available [facility] ([facility]) [address] [place], [address], 05/31/2024 08:31:27 05/30/20 24 05/31/2024 COMP. METAB OLIC PANEL (14) BUN 10 mg/dL 6-20 Not Available [facility] ([facility]) [address] [place], [address], 05/31/2024 08:31:27 05/30/20 24 05/31/2024 COMP. METAB OLIC PANEL (14) creatinine 0.74 mg/dL 0.57-1 .00 Not Available [facility] ([facility]) [address] [place], [address], 05/31/2024 08:31:27 05/30/20 24 05/31/2024 COMP. METAB OLIC PANEL (14) eGFR 112 mL/mi n/1.7 3 >59 Not Available [facility] ([facility]) [address] [facility] [place], [address], 05/31/2024 08:31:27 05/30/2005/31/2024 COMP. METAB OLIC PANEL (14) BUN/creatini ne ratio 14 -23 Not Available [facility] ([facility]) [address] [facility], [place], [address], 05/31/2024 08:31:27 05/30/2005/31/2024 COMP. METAB OLIC PANEL (14) sodium 140 mmol/ L 134-14 4 Not Available [facility] ([facility]) [address] [facility] [place], [address], 05/31/2024 08:31:27 05/30/20 24 05/31/2024 COMP. METAB OLIC PANEL (14) potassium 4.0 mmol/ L 3.5-5. 2 Not Available [facility] ([facility]) [address] [facility], [place], [address], 05/31/2024 08:31:27 05/30/2005/31/2024 COMP. METAB OLIC PANEL (14) chloride 101 mmol/ L 96-106 Not Available [facility] ([facility]) [address] [facility], [place], [address], 05/31/2024 08:31:27 05/30/20 24 05/31/2024 COMP. METAB OLIC PANEL (14) carbon dioxide, total 24 mmol/ L 20-29 Not Available [facility] ([facility]) [address] [facility], [place], [address], 05/31/2024 08:31:27 05/30/2005/31/2024 COMP. METAB OLIC PANEL (14) calcium 9.7 mg/dL 8.7-10 .2 Not Available [facility] ([facility]) [address] [facility] [place], [address], 05/31/2024 08:31:27 05/30/20 05/31/2024 COMP. METAB OLIC PANEL (14) protein, total 7.1 g/dL 6.0-8. 5 Not Available [facility] ([facility]) [address] [facility], [place], [address], 05/31/2024 08:31:27 05/30/20 24 05/31/2024 COMP. METAB OLIC PANEL (14) albumin 4.8 g/dL 4.0-5. 0 Not Available [facility] ([facility]) [address] [facility], [place], [address], 05/31/2024 08:31:27 05/30/2005/31/2024 COMP. METAB OLIC PANEL (14) globulin, total 2.3 g/dL 1.5-4. 5 Not Available [facility] ([facility]) [address] [facility], [place], [address], 05/31/2024 08:31:27 05/30/20 24 05/31/2024 COMP. METAB OLIC PANEL (14) bilirubin, total <0.2 mg/dL 0.0-1. 2 Not Available [facility] ([facility]) [address] [facility], [place], [address], 05/31/2024 08:31:27 05/30/20 24 05/31/2024 COMP. METAB OLIC PANEL (14) alkaline phosphatase 85 IU/L 44-121 Not Available [facility]) [address] [facility], [place], [address], 05/31/2024 08:31:27 05/30/20 24 05/31/2024 COMP. METAB OLIC PANEL (14) AST (SGOT) 17 IU/L 0-40 Not Available [facility] ([facility]) [address] [facility], [place], [address], 05/31/2024 08:31:27 05/30/20 24 05/31/2024 COMP. METAB OLIC PANEL (14) ALT (SGPT) 18 IU/L 0-32 Not Available [facility] ([facility]) [address] [facility], [place], [address], 05/31/2024 08:31:27 05/30/20 24 05/30/2024 AMBIG ABBRE V CMP14 DEFAU LT ambig abbrev CMP14 default COMMEN T A hand- writt en panel /prof ile was recei bradley from your offic e. In accor dance with the [facility] Ambig uous Test Code Polic y dated February 2003, we have compl eted your order by using the close st curre ntly or forme rly recog nized AMA panel . We have assig josh Compr ehens billie Metab olic Panel (14), Test Code #32[address]. If this is not the testi ng you wishe d to recei ve on this speci men, pleas e conta ct the [facility] Clien t Inqui ry/Te chnic al Servi alf Depar tment to talib fy the test order . We appre ciate your busin ess. Not Available [facility] ([facility]) [address] [facility], [place], [address], 05/31/2024 08:31:29 05/30/20 24 05/31/2024 CBC/D IFF AMBIG UOUS DEFAU LT WBC 10.0 x10e3 /uL 3.4-10 .8 Not Available [facility] ([facility]) [address] [facility], [place], [address], 05/31/2024 08:31:30 05/30/20 24 05/31/2024 CBC/D IFF AMBIG UOUS DEFAU LT RBC 4.83 x10e6 /uL 3.77-5 .28 Not Available [facility] ([facility]) [address] [facility], [place], [address], 05/31/2024 08:31:30 05/30/20 24 05/31/2024 CBC/D IFF AMBIG UOUS DEFAU LT hemoglobin 13.5 g/dL 11.1-1 5.9 Not Available [facility] ([facility]) [address] [facility], [place], [address], 05/31/2024 08:31:30 05/30/2005/31/2024 CBC/D IFF AMBIG UOUS DEFAU LT hematocrit 41.6 % 34.0-4 6.6 Not Available [facility] ([facility]) [address] [facility], [place], [address], 05/31/2024 08:31:30 05/30/2005/31/2024 CBC/D IFF AMBIG UOUS DEFAU LT MCV 86 fL 79-97 Not Available [facility] ([facility]) [address] [place], [address], 05/31/2024 08:31:30 05/30/2005/31/2024 CBC/D IFF AMBIG UOUS DEFAU LT MCH 28.0 pg 26.6-3 3.0 Not Available [facility] ([facility]) [address] [place], [address], 05/31/2024 08:31:30 05/30/2005/31/2024 CBC/D IFF AMBIG UOUS DEFAU LT MCHC 32.5 g/dL 31.5-3 5.7 Not Available [facility] ([facility]) [address] [place], [address], 05/31/2024 08:31:30 05/30/2005/31/2024 CBC/D IFF AMBIG UOUS DEFAU LT RDW 13.6 % 11.7-1 5.4 Not Available [facility] ([facility]) [address] [place], [address], 05/31/2024 08:31:30 10/22/20 24 05/31/2024 CBC/D IFF AMBIG UOUS DEFAU LT platelets 385 x10e3 /uL 150-45 0 Not Available [facility] ([facility]) [address] [facility], [place], [address], 05/31/2024 08:31:30 05/30/2005/31/2024 CBC/D IFF AMBIG UOUS DEFAU LT neutrophils 54 % notest ab. Not Available [facility] ([facility]) [address] [facility], [place], [address], 05/31/2024 08:31:30 05/30/2005/31/2024 CBC/D IFF AMBIG UOUS DEFAU LT lymphs 37 % notest ab. Not Available [facility] ([facility]) [address] [facility], [place], [address], 05/31/2024 08:31:30 05/30/2005/31/2024 CBC/D IFF AMBIG UOUS DEFAU LT monocytes 6 % notest ab. Not Available [facility] ([facility]) [address] [facility], [place], [address], 05/31/2024 08:31:30 05/30/20 24 05/31/2024 CBC/D IFF AMBIG UOUS DEFAU LT eos 2 % notest ab. Not Available [facility] ([facility]) [address] [facility], [place], [address], 05/31/2024 08:31:30 05/30/2005/31/2024 CBC/D IFF AMBIG UOUS DEFAU LT basos 1 % notest ab. Not Available [facility] ([facility]) [address] [facility], [place], [address], 05/31/2024 08:31:30 05/30/20 24 05/31/2024 CBC/D IFF AMBIG UOUS DEFAU LT neutrophils (absolute) 5.5 x10e3 /uL 1.4-7. 0 Not Available [facility] ([facility]) [address] [facility], [place], [address], 05/31/2024 08:31:30 05/30/2005/31/2024 CBC/D IFF AMBIG UOUS DEFAU LT lymphs (absolute) 3.7 x10e3 /uL 0.7-3. 1 above high normal Not Available [facility] ([facility]) [address] [facility], [place], [address], 05/31/2024 08:31:30 05/30/20 24 05/31/2024 CBC/D IFF AMBIG UOUS DEFAU LT monocytes(ab solute) 0.6 x10e3 /uL 0.1-0. 9 Not Available [facility] ([facility]) [address] [facility], [place], [address], 05/31/2024 08:31:30 05/30/2005/31/2024 CBC/D IFF AMBIG UOUS DEFAU LT eos (absolute) 0.2 x10e3 /uL 0.0-0. 4 Not Available [facility] ([facility]) [address] [facility], [place], [address], 05/31/2024 08:31:30 05/30/20 24 05/31/2024 CBC/D IFF AMBIG UOUS DEFAU LT baso (absolute) 0.1 x10e3 /uL 0.0-0. 2 Not Available [facility] ([facility]) [address] [facility], [place], [address], 05/31/2024 08:31:30 05/30/2005/31/2024 CBC/D IFF AMBIG UOUS DEFAU LT immature granulocytes 0 % notest ab. Not Available [facility] ([facility]) [address] [facility], [place], [address], 05/31/2024 08:31:30 05/30/20 24 05/31/2024 CBC/D IFF AMBIG UOUS DEFAU LT immature grans (abs) 0.0 x10e3 /uL 0.0-0. 1 Not Available [facility] ([facility]) [address] [facility], [place], [address], 05/31/2024 08:31:30 05/30/20 24 05/31/2024 CBC/D IFF AMBIG UOUS DEFAU LT hematology comments: - A hand- writt en panel /prof ile was recei bradley from your offic e. In accor dance with the [facility] Ambig uous Test Code Polic y dated February 2003, we have assig josh CBC with Diffe gabbie al/Daryn andrade, Test Code #[address]. If this is not the testi ng you wishe d to recei ve on this speci men, pleas e conta ct the [facility] Clien t Inqui ry/ Techn ical Servi alf Depar tment to talib fy the test order . We appre ciate your busin ess. Not Available [facility] ([facility]) [address] [facility], [place], [address], 05/31/2024 08:31:30 05/30/2005/31/2024 VITAM IN B12 AND FOLAT E vitamin B12 704 pg/mL 232-12 45 Not Available [facility] ([facility]) [address] [facility], [place], [address], 05/31/2024 08:31:31 05/30/2005/31/2024 VITAM IN B12 AND FOLAT E folate (folic acid), serum 10.0 NG/mL >3.0 A serum folat e sidney ntrat ion of less than 3.1 ng/mL is consi dered to repre sent clini harleen defic iency . Not Available [facility] ([facility]) [address] [facility], [place], [address], 05/31/2024 08:31:31 05/30/20 24 05/31/2024 CORTI POOJA cortisol 11.0 ug/dL 6.2-19 .4 Julieta hong Note: The refer ence inter roberto carlos and abby ing for this test is for an AM colle ction . If this is a PM colle ction julieta hong use: Corti pooja PM: 2.3-1 1.9 Not Available [facility] ([facility]) [address] [place], [address], 05/31/2024 08:31:32 05/30/2005/31/2024 TRIIO DOTHY CLARK E (T3), FREE triiodothyro nine (T3), free 2.5 pg/mL 2.0-4. 4 Not Available [facility] ([facility]) [address] [place], [address], 05/31/2024 08:31:33 05/30/2005/31/2024 FE+TI BC+FE R iron bind.cap.(TI BC) 348 ug/dL 250-45 0 Not Available [facility] ([facility]) [address] [place], [address], 05/31/2024 08:31:34 05/30/2005/31/2024 FE+TI BC+FE R UIBC 303 ug/dL 131-42 5 Not Available [facility] ([facility]) [address] [place], [address], 05/31/2024 08:31:34 05/30/2005/31/2024 FE+TI BC+FE R iron 45 ug/dL 27-159 Not Available [facility] ([facility]) [address] [place], [address], 05/31/2024 08:31:34 05/30/2005/31/2024 FE+TI BC+FE R iron saturation 13 % 15-55 below low normal Not Available [facility] ([facility]) [address] [place], [address], 05/31/2024 08:31:34 05/30/20 24 05/31/2024 FE+TI BC+FE R ferritin 49 NG/mL 15-150 Not Available [facility] ([facility]) [address] [facility], [place], [address], 05/31/2024 08:31:34 05/30/20 24 05/31/2024 VITAM IN D, 25-HY DROXY vitamin D, 25-hydroxy 18.6 NG/mL 30.0-1 00.0 below low normal Vitam in D defic iency has been defin ed by the Insti tute of Medic ine and an Endoc rine Socie ty pract ice guide line as a level of serum 25-OH vitam in D less than 20 ng/mL (1,2) . The Endoc rine Socie ty went on to furth er defin e vitam in D insuf ficie ncy as a level betwe en 21 and 29 ng/mL (2). 1. IOM (Inst itute of Medic ine). 2009. Dieta ry refer ence intak es for calci um and D. Jaycob wu [place]: The Natio nal [employer] [facility] Press . 2. Byron abreu MF, Ad peck [place], Gustavo off-F porfirioar i BARNEY, et al. Evalu ation , treat ment, and preve ntion of vitam in D defic iency : an Endoc rine Socie ty clini harleen pract ice guide line. JCEM. 2010; 96(7) :1911 -30. Not Available [facility] ([facility]) [address] [facility], [place], [address], 05/31/2024 08:31:35 06/07/20 24 05/31/2024 PFT, compl ete No observ ation record ed. [facility]) [address] [facility] [address], [place], [address], 06/07/2024 17:43:02 Result Notes None recorded. Problems Name Problem SNOMED Code Status Onset Date Resolution Date Notes Provider Name and Address Organization Details Recorded Time Obesity 020287426 Active 2023 JAIME Daley Attn: Accountin g,[address] [facility], [place], [address], [place] - [facility] 4 20:13:40 Body mass index 30+ - obesity 895559744 Active 2023 JAIME Daley Attn: Accountin g,[address] [facility], [place], [address], [place] [facility] 4 20:13:40 Mixed anxiety and depressive disorder 037209543 Active 2023 JAIME Daley Attn: Accountin g,[address] [facility], [place], [address], [place] [facility] 4 20:13:43 Generalized anxiety disorder 55353810 Active 2023 JAIME Daley Attn: Accountin g,[address] [facility], [place], [address], [place] - [facility] 4 21:53:02 Reactive airway disease 255925913387 Active 2023 JAIME Daley Attn: Accountin g,[address] [facility], [place], [address], [place] [facility] 4 21:53:03 Problem Notes None recorded. Procedures Surgical History Date Name Laterality Status Provider Name and Address Organization Details Recorded Time section completed Neeraj Noriega [place] - [facility] 11/25/2023 11:22:09 Imaging Results Imaging Date Name Status [facility]Modified by [facility] Details LastModified Time 05/31/2024 PFT, complete completed [facility] ([facility]) [address] [facility] [address] [place] [address], [address], 06/07/2024 17:43:02 Procedure Notes None recorded. Medical Equipment None Reported. Allergies No known drug allergies Medications Name Sig Start Date Stop Date Status Note LastModified by Organization Details LastModified Time azithromy wade 250 mg tablet 11/24 completed Not Available Not Available Not Available prednison e 20 mg tablet TAKE 1 TABLET BY MOUTH TWICE DAILY active Not Available Not Available No t Available amoxicill in 875 mg tablet TAKE 1 TABLET BY MOUTH EVERY 12 HOURS 09/14 completed Not Available Not Available Not Available alprazola m 0.25 mg tablet Take 1 tablet twice a day by oral route as needed, for anxiety. active Not Available Not Available No t Available meclizine 25 mg tablet TAKE 1 TABLET BY MOUTH DAILY NEEDED active Not Available Not Available No t Available monteluka st 10 mg tablet TAKE 1 TABLET BY MOUTH EVERY DAY active Not Available Not Available No t Available codeine 10 mg-guaife nesin 100 mg/5 mL oral liquid TAKE 10 ML BY MOUTH EVERY 4 HOURS NEEDED FOR COUGH 02/27 completed Not Available Not Available Not Available ergocalci ferol (vitamin D2) 1,250 mcg (50,000 unit) capsule Take 1 capsule every week by oral route. 2024 active Not Available Not Available Not Avai lable methylpre dnisolone 4 mg tablets in a dose pack FOLLOW PACKAGE DIRECTIO NS 01/09 completed Patient finished this medicati on. . Not Available Not Available Not Available albuterol sulfate HFA 90 mcg/actua tion aerosol inhaler INHALE 2 PUFFS BY MOUTH EVERY 4 HOURS NEEDED COUGH OR WHEEZE active Not Available Not Available No t Available norethind sonia (contrace ptive) 0.35 mg tablet TAKE 1 TABLET BY MOUTH EVERY DAY 11/24 completed Not Available Not Available Not Available ondansetr on 4 mg disintegr ating tablet DISSOLVE 1 TABLET ON THE TONGUE EVERY 8 HOURS NEEDED 11/24 completed Not Available Not Available Not Available cefdinir 300 mg capsule Take 1 capsule every 12 hours by oral route. 01/09 completed Not Available Not Available Not Available sertralin e 50 mg tablet TAKE 1 TABLET BY MOUTH EVERY DAY active zoloft Not Available Not Available No t Available amoxicill in 875 mg-potass ium clavulana te 125 mg tablet TAKE 1 TABLET BY MOUTH TWICE DAILY FOR 7 DAYS 11/24 completed Not Available Not Available Not Available albuterol active Not Available Not Tamar ilable Not Available albuterol 90 mcg-budes onide 80 mcg/actua tion HFA aerosol inhaler Inhale by inhalati on route. 01/09 completed Not Available Not Available Not Available Breyna 160 mcg-4.5 mcg/actua tion HFA aerosol inhaler INHALE 2 PUFFS BY MOUTH TWICE DAILY active Not Available Not Available No t Available Vitals Date Recorded Body height Heart rate Oxygen saturation Oxygen saturation in Arterial blood by Pulse oximetry Systolic blood pressure Diastolic blood pressure Provider Name and Address Organization Details Last Updated DateTime 157.48 cm 80 /min 98 % 98 % 130 mm[Hg] 80 mm[Hg] Neeraj Noriega MA [facility] 10:27:31 Date Recorded Body mass index (BMI) Body weight Provider Name and Address Organization Details Last Updated DateTime 11/25/2023 38.2 kg/m2 43117.81 g JAIME Daley Attn: Accounting,[address] [place], [address], [facility] 11/25/2023 11:04:39 Date Recorded Body height Body mass index (BMI) Body weight Heart rate Oxygen saturation Oxygen saturation in Arterial blood by Pulse oximetry Systolic blood pressure Diastolic blood pressure Provider Name and Address Organization Details Last Updated DateTime 4 157.48 cm 38 kg/m2 07691.4 2 g 88 /min 99 % 99 % 130 mm[Hg] 76 mm[Hg] Vivi Mcmullen MA [facility] 12:38:30 Date Recorded Respiratory rate Provider Name a id Address Organization Details Last Updated DateTime 01/10/2024 20 /min JAIME Daley Attn: Accounting,[address] [place], [address], [facility] 01/10/2024 12:50:40 Social History Question Answer Notes LastModified by Organizat ion Details LastModified Time Tobacco Smoking Status Never Smoker Neeraj Noriega MA null, [facility] 11/25/2023 10:24:08 Do You Have An Advance Directive? No Information not available 01/10/2024 What Is Your Level Of Alcohol Consumption? Occasional Information not available 11/25/2023 Are You Blind Or Do You Have Difficulty Seeing? No Information not available 11/25/2023 What Is Your Level Of Caffeine Consumption? Occasional Coffee Am Information not available 11/25/2023 In The 14 Days Before Symptom Onset, Have You Had Close Contact With A Laboratory-confir med COVID-19 While That Case Was Ill? No Information not available 11/25/2023 In The 14 Days Before Symptom Onset, Have You Had Close Contact With A Person Who Is Under Investigation For COVID-19 While That Person Was Ill? No Information not available 11/25/2023 Have You Been To An Area Known To Be High Risk For COVID-19? No Information not available 11/25/2023 Are You Deaf Or Do You Have Serious Difficulty Hearing? No Information not available 11/25/2023 What Type Of Diet Are You Following? REGULAR Information not available 11/25/2023 Are There Any Guns Present In Your Home? No Information not available 11/25/2023 What Was The Date Of Your Most Recent Tobacco Screening? 01/10/2024 Information not available 01/10/2024 What Is Your Relationship Status? Information not available 01/10/2024 Do You Use Your Seat Belt Or Car Seat Routinely? Yes Information not available 11/25/2023 Do You Have Smoke And Carbon Monoxide Detectors In Your Home? Yes Information not available 11/25/2023 Do You Feel Stressed (tense, Restless, Nervous, Or Anxious, Or Unable To Sleep At Night)? [id number] Information not available 01/10/2024 Do You Use Any Illicit Or Recreational Drugs? No Information not available 11/25/2023 Do You Use Sunscreen Routinely? Yes Information not available 11/25/2023 Has Tobacco Cessation Counseling Been Provided? Yes Information not available 11/25/2023 On What Date Was Tobacco Cessation Counseling Provided? 01/10/2024 Information not available 01/10/2024 Do You Or Have You Ever Used Any Other Forms Of Tobacco Or Nicotine? No Information not available 11/25/2023 Sex: Female Functional Status Question Answer Note LastModified by Organizat ion Details LastModified Time Are you able to care for yourself? Yes Information not available 11/25/2023 What is your exercise level? Occasional walking Information not available 11/25/2023 Mental Status None recorded. Family History Relationship Description Onset Age of this Age Resolved Age Notes LastModified by Organization Details LastModified Time Mother Hypercholest erolemia tcarterma Not available 2023 11:22:48 Mother Disorder of thyroid gland tcarterma Not available 2023 11:23:00 Sister Migraine tcarterma Not availabl e 11/25/2023 11:22:55 Medical History Condition Response Coronary Artery Disease N Other N High Blood Pressure N Atrial Fibrillation N Kidney or Bladder Problems N Thyroid Problems N GI Problems N Depression Y COPD N Blood Clots N Skin Problems N Anemia N Heart Attack ([place]) N Anxiety Disorder Y Diabetes N Muscle, Joint, or Bone Problems N Seizures/Epilepsy N Acid Reflux (GERD) N Cancer N Stroke N Asthma Y Allergies Y High Cholesterol N Hepatitis N Liver Disease N Headaches N Heart Failure N Osteoporosis N Gynecological History Statement/Question Response Flow Moderate Date of LMP 01/10/2024 Frequency of Cycle (Q days) 26 Menses Monthly Y Duration of Flow (days) 5 Current Control Method None LMP Definite Obstetrics History GPAL:G 1 P 1 0 0 1 Type Value Full Term 1 Induced 0 Spontaneous 0 Premature 0 Living 1 Total 1 Past Encounters Encounter ID Performer Location Encounter Start Date Encounter Closed Date Diagnosis/Indication Diagnosis SNOMED-CT Code Diagnosis ICD10 Code Diagnosis Note [id number] [facility] [address] [place] [address] 11/25/2023 10:15:05 11/25/2023 11:07:59 Acute sinusitis [id number] J01.90 start amoxil 875mg bid. Dysfunctio n of bilateral eustachian tubes [id number] H69.93 start Medrol dose pack. OTC flonase, sudafed PE Cholesterol screening 27 [id number] Z13.220 fasting labs are all due. Diabetes m ellitus screening [id number] Z13.1 Thyroid di sorder screening [id number] Z13.29 Long-term drug therapy [id number] Z79.899 Body mass index 30+ - obesity 728110173 Z68.38 Mixed anxi ety and depressive disorder 670037604 F41.8 stable on sertraline 50mg daily. Obesity 709626415 E66.9 discussed healthy diet, exercise, controllin g carbohydra meghna and added sugars in the diet [id number] JAIME Daley [facility] [address] [place] [address] 01/10/2024 12:18:48 01/10/2024 13:29:59 Reactive airway disease [id number] 06 J45.909 start symbicort 160/4.5mcg 2 puffs bid. pt endorses hx of reactive airway that has been ongoing wax and wane . refer also for formal PFTs. Generalize d anxiety disorder [id number] F41.1 pt is very anxious about her health and worries that her symptoms are related to something more involved, though she knows it is likely not. she cannot calm her anxieties. she does have alprazolam for PRN use. continue sertraline 50mg daily. Panic attack 072408251 F 41.0 PRN use of alprazolam 0.25mg bid Health Concerns Section Related Observation LastModified by Organization Detai ls LastModified Time None Recorded Concern Status LastModified by Organization Details LastModified Time None Recorded Advance Directives Directive N: Payers Encounter Date Sequence Insurance Name Policy Number Policy Germain Covered Member ID Germain Member ID Guarantor Name 11/25/2023 1 [facility] [id number] [facility] [id number] [facility] 01/10/2024 1 [facility] [id number] [facility] [id number] 1 Nkechigely Murillo Notes Date Note Type Note Provider Name and Address Organization Details Recorded Time 11/25/2023 text/html Anxiety/Depressi on Reported bypatient.Quality: symptoms improved Severity:denies suicidal ideations; able to maintain relationships; does not interfere with activities of daily living Duration:symptoms lasting over 2 weeks; stablizing Modifying Factors:medication s as directed Associated Symptoms:denies homicidal ideations; mood good; energy goodNotes:stable on sertraline 50mg daily.Sinusitis/Al lergyReported bypatient.Location :maxillary Associated Symptoms:facial pain;sinus pain;ear fullness Context:recent upper respiratory infection;worse with seasonal allergen exposure JAIME Daley Attn: Accounting[address] [place], [address], [facility] 12/07/2023 20:13:59 01/10/2024 text/html Asthma F/UReport ed bypatient.Context: worsening Modifying Factors:allergies Associated Symptoms:no fever; no fatigue;cough;shor tness of breathNotes:onset last week was using old inhaler and got the new one from [employer]. helping some, but this morning the barking cough started like when her asthma flares up. JAIME Daley Attn: Accounting[address] [facility], [place], [address], [facility] 02/05/2024 21:53:23 OBGyn Episode No OBEpisode recorded.
[2024-09-24 09:11] LABS: Basophils Absolute Auto 0.1 K/mm3 (0.0-0.1); Basophils Percent Auto 0.6 % (0.2-1.2); Eosinophils Absolute Auto 0.2 K/mm3 (0-0.3); Eosinophils Percent Auto 2.6 % (0-4.4); Hematocrit 40.2 % (37.0-47.0); Hemoglobin 13.2 g/dL (12.0-15.0); Immature Granulocyte Absolute 0.04 K/mm3 (0.00-0.031); Immature Granulocyte Percent A 0.5 % (0-0.5); Lymphocytes Absolute Auto 2.84 K/mm3 (0.9-3.2); Lymphocytes Percent Auto 33.6 % (18.3-44.2); Mean Corpuscular HGB Conc 32.8 g/dl (32-36); Mean Corpuscular Hemoglobin 28.1 pg (26-34); Mean Corpuscular Volume 85.5 fl (80-100); Mean Platelet Volume 9.3 fl (7.4-10.4); Monocytes Absolute Auto 0.8 K/mm3 (0.1-0.6); Neutrophils Absolute Auto 4.5 K/mm3 (1.3-6.7); Neutrophils Percent Auto 53.7 % (45.5-73.1); Platelet Count Result 367 k/mm3 (150-375); White Blood Count 8.4 K/mm3 (4.5-10.0)
[2024-09-24 09:22] LABS: INR 0.9; Prothrombin Time 12.7 Seconds (11.1-14.7)
[2024-09-24 09:23] LABS: Partial Thromboplastin Time 23.6 Seconds (22.3-36.8)
[2024-09-24 09:26] LABS: Alanine Aminotransferase 22 U/L (6-35); Albumin Level 4.6 g/dL (3.5-5.1); Alkaline Phosphatase 74 U/L (38-126); Anion Gap 15 mmol/L (4-12); Aspartate Amino Transferase 19 U/L (14-36); Bilirubin,Total 0.4 mg/dL (0.2-1.3); Blood Urea Nitrogen 10 mg/dL (7-17); Calcium 9.6 mg/dL (8.4-10.2); Carbon Dioxide 20 mmol/L (22-30); Chloride 104 mmol/L (98-107); Estimated CRCL calculation 122 ml/min; Estimated Glomerular Filt Rate > 60; Glucose 111 mg/dL (65-110); Lipase 140 U/L (23-300); Potassium 3.8 mmol/L (3.4-5.0); Sodium 139 mmol/L (137-145)
[2024-09-24] MEDS: KETOROLAC 30 MG/ML VIAL (*BKC) IV PUSH (09:27)
[2024-09-24 09:37] LABS: Troponin I < 0.012 ng/mL (0.000-0.034)
[2024-09-24 10:22] LABS: Influenza A QL RT-PCR Negative (Negative); Influenza B QL RT-PCR Negative (Negative); RSV RNA, RT-PCR Negative (Negative); SARS-CoV-2 RNA PCR Negative (Negative)
--- NOTE | 2024-09-24 10:49 | ED_ITS ---
HPI - Chest Pain General Chief Complaint: Chest Pain Stated Complaint: chest pain Time Seen by Provider: 09/24/24 08:55 History of Present Illness HPI narrative: Patient is a 29-year-old female who presents ER with left-sided chest pain in left sided back pain under her shoulder blade. Worse with deep breath. No change with exertion. Has history of pleurisy in the past. Her family has had flu and other viral infections over last couple weeks. No fevers or chills or sweats at this time. No hemoptysis. Developed palpitations with heart rate going up into the 120s today and she could not get a slow down so she came in. No stimulant use. She is not on control. Has a grandmother who had a blood clot in the past. Has not taken any pain medication. Related Data Allergies Allergy/AdvReac Type Severity Reaction Status Date / Time No Known Allergies Allergy Verified 09/24/24 09:02 Review of Systems 2 Review of Systems: All systems reviewed & are unremarkable except as noted in HPI and below Constitutional: Constitutional: Reports no additional constitutional complaints ENT: Reports system reviewed and no additional complaints, except as documented Cardiovascular: Cardiovascular: Reports no additional cardiovascular complaints Respiratory: Respiratory: Reports no additional respiratory complaints Musculoskeletal: Musculoskeletal: Reports no additional musculoskeletal complaints PMFSH Past Medical History Medical History (Updated 09/24/24 @ 10:59 by Alex Salomon MD) Anxiety Surgical History Surgical History (Updated 09/24/24 @ 10:51 by Alex Salomon MD) No pertinent past surgical history Exam 2 Narrative: GENERAL: Well-appearing, well-nourished, and in no acute distress. HEAD: Normocephalic, atraumatic. ENT: Mucous membranes moist. CHEST: Clear to auscultation. No respiratory distress. HEART: Tachycardic regular. Normal peripheral pulses. ABDOMEN: Soft, nontender, nondistended. EXTREMITIES: Normal range of motion. No edema. SKIN: Warm, dry, no rash. NEURO: Alert and oriented x3. PSYCH: Normal mood and affect. Course Vital Signs Vital signs: Vital Signs Temperature 98.2 F 09/24/24 08:56 Pulse Rate 117 H 09/24/24 08:56 Respiratory Rate 20 09/24/24 08:56 Blood Pressure 146/91 H 09/24/24 08:56 Pulse Oximetry 100 09/24/24 08:56 Oxygen Delivery Room Air 09/24/24 08:56 Temperature 98.2 F 09/24/24 08:56 Pulse Rate 117 H 09/24/24 09:00 Respiratory Rate 20 09/24/24 08:56 Blood Pressure 146/91 H 09/24/24 08:56 Pulse Oximetry 100 09/24/24 08:56 Oxygen Delivery Room Air 09/24/24 08:56 MDM - Chest Pain Lab Data 09/24/24 09:05 09/24/24 09:05 Labs: Lab Results 09/24/24 09/24/24 Range/Units 09:05 09:36 WBC 8.4 (4.5-10.0) K/mm3 RBC 4.70 (4.2-5.4) M/mm3 Hgb 13.2 (12.0-15.0) g/dL Hct 40.2 (37.0-47.0) % MCV 85.5 (80-100) fl MCH 28.1 (26-34) pg MCHC 32.8 (32-36) g/dl RDW 14.0 (11.5-14.5) % Plt Count 367 (150-375) k/mm3 MPV 9.3 (7.4-10.4) fl Immature Gran % (Auto) 0.5 (0-0.5) % Neut % (Auto) 53.7 (45.5-73.1) % Lymph % (Auto) 33.6 (18.3-44.2) % [place] % (Auto) 9.0 H (2.6-8.5) % Eos % (Auto) 2.6 (0-4.4) % Baso % (Auto) 0.6 (0.2-1.2) % Lymph # (Auto) 2.84 (0.9-3.2) K/mm3 [place] # (Auto) 0.8 H (0.1-0.6) K/mm3 Eos # (Auto) 0.2 (0-0.3) K/mm3 Baso # (Auto) 0.1 (0.0-0.1) K/mm3 Abs Immat Gran (auto) 0.04 H (0.00-0.031) K/mm3 Absolute Neuts (auto) 4.5 (1.3-6.7) K/mm3 Absolute Nucleated RBC 0.000 (0.0-0.012) K/mm3 Nucleated RBC % 0.0 (0.0-0.2) % PT 12.7 (11.1-14.7) Seconds INR 0.9 APTT 23.6 (22.3-36.8) Seconds Sodium 139 (137-145) mmol/L Potassium 3.8 (3.4-5.0) mmol/L Chloride 104 (98-107) mmol/L Carbon Dioxide 20 L (22-30) mmol/L Anion Gap 15 H (4-12) mmol/L BUN 10 (7-17) mg/dL Creatinine 0.62 L (0.7-1.0) mg/dL Estim Creat Clear Calc 122 ml/min Estimated GFR > 60 (59 - ) Glucose 111 H (65-110) mg/dL Calcium 9.6 (8.4-10.2) mg/dL Total Bilirubin 0.4 (0.2-1.3) mg/dL AST 19 (14-36) U/L ALT 22 (6-35) U/L Alkaline Phosphatase 74 (38-126) U/L Troponin I < 0.012 (0.000-0.034) ng/mL Total Protein 8.0 (6.3-8.2) g/dL Albumin 4.6 (3.5-5.1) g/dL Lipase 140 (23-300) U/L Influenza A (RT-PCR) Negative (Negative) Influenza B (RT-PCR) Negative (Negative) RSV (RT-PCR) Negative (Negative) SARS-CoV-2 RNA (RT-PCR) Negative (Negative) Imaging Data Radiologist's impression: ITS Impressions Chest X-Ray 09/24/24 09:43 IMPRESSION: No focal infiltrate or effusion. Chest CTA 09/24/24 09:55 IMPRESSION: No pulmonary embolus. No thoracic aortic dissection. The lungs are clear. ECG Data EKG #1: ECG completion date: 09/24/24 ECG completion time: 08:59 EKG Interpretation: tachycardia (117), sinus rhythm, non-specific ST changes, normal QRS, normal QT and NL axis Discharge Plan Discharge Clinical Impression: Pleurisy Patient Disposition: Home, Self-Care Condition: Stable Instructions: Pleurisy (ED) Additional Instructions: Please return to the emergency department if you develop severe and persistent chest pain, difficulty breathing, dizziness, leg swelling or if you are coughing up blood as these can be signs of a medical emergency. Please call your doctor for a follow up appointment to determine the need for further testing. Patient Language: Citizen Of [place] Prescriptions: New naproxen 375 mg tablet 375 mg PO BID Qty: 14 0RF Follow-up/Referrals: Osei,COLIN Munguia [Primary Care Provider] - 1 Week
== END 2024-09-24 11:12 | disposition home or self-care (01) ==
PROVIDERS: Emergency Provider Emergency Medicine; PCP Physician Assistant
DX: R09.1 Pleurisy (principal); Z20.822 Contact with and (suspected) exposure to COVID-19; R94.31 Abnormal electrocardiogram [ECG] [EKG]
CPT/HCPCS: 36415; 71046; 71275; 80053; 83690; 84484; 85025; 85610; 85730; 87637; 93005; 96374; 99284; J1885; Q9967

== ENCOUNTER 2024-09-26 12:00 | Emergency (ER) | payer OTHER, SELFPAY ==
--- OUTSIDE RECORDS SUMMARY | 2024-09-26 12:02 | XMS_ITS | Referral Summary ---
Author Organization [facility] Address [address] [place] [address] Care Team Providers Care Supervisor Display Fabrication Name Role Phone Teresa Cedeno MD Unavailable [phone]- [phone] Teresa Cedeno MD Unavailable [phone]- [phone] Nilda Franz Primary Care Pr ovider Allergies No known active allergies Medications vit 52-pffy-srolg-dha 27mg iron- 800 mcg-250 mg capsule Take [...] more drinks on one occasion? 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 Patient Name: DEVORAH MADRIGAL Address: [address] [place] [address] Gender: F : 1995 (Age: 26) Service: Location: N : [id number] [facility] #: [id number] Patient Type: [employer] SPECIMEN Taken: 11/04/2021 Reported: 11/09/2021 Physician(s): Teresa [...] Insurance [facility] EMPLOYEE HEALTH PLANS Address: [facility] [address] [address] [facility] EMPL[employer]EE HEALTH PLANS Address: [facility] [id number] [place] [address] FOR[facility]LY [facility] EMPLOYEE [employer] Address: [facility] [id number] [place] [address] Advance Directives For more information, please contact: [phone] * Full Code (Latest Code Status on File) Date Activated Date Inactivated Comments 06/02/2022 4:58 PM 06/06/2022 4:29 PM * Full Code Date Activated Date Inactivated Comments 06/01/2022 5:01 PM 06/02/2022 4:58 PM Full CPR i n case of cardiopulmonary arrest Care Teams Supervisor Display Fabrication Relationship Specialty Start Date End Date Nilda Franz PA [address] [place] [address] PCP - General 11/25/23 Teresa Cedeno MD [address] [place] [address] Consulting Physician Obstetrics and Gynecology 06/05/22 Teresa Cedeno MD [id number] [place] [address] Consulting Physician Obstetrics and Gynecology 06/11/23
--- OUTSIDE RECORDS SUMMARY | 2024-09-26 12:02 | XMS_ITS | Data Portability ---
Author Organization [facility] SIVAAlma Rosa Jiménez Address [address] [place] [address] Care Team Providers Care Decorating Kiln Operator Name Role Phone CHYNAGREGORY GUTIERRES Primary Care Provider Unavailab le Assessment No assessment recorded. Plan of Treatment Reminders Order Date Submit Date Provider Last Modified By Organization Details Last Modified Time Details Appointments None recorded. Lab TSH + free T4, serum 2023 024 [facility] Orders Processing, [address], [place], [address], 4 09:33:45 lipid panel, serum 2023 024 [facility] Orders Processing, [address], [place], [address], 4 09:33:45 CBC w/ auto diff 2023 024 [facility] Orders Processing, [address], [place], [address], 4 09:33:45 CMP, serum or plasma 2023 024 [facility] Orders Processing, [address], [place], [address], 4 13:00:22 vitamin B12 + folate, serum or blood 2023 024 [facility] Orders Processing, [address], [place], [address], 4 09:33:45 HbA1c (hemoglobin A1c), blood 2023 [facility] Orders Processing, [address], [place], [address], 4 09:33:45 insulin, serum 2023 024 [facility] Orders Processing, [address], [place], [address], 4 09:33:45 Referral None recorded. Procedures None recorded. Surgeries None recorded. Imaging PFT, complete - with and without bronchodila tor 2023 [facility] (Resp Services), [address] [place], [place] [address]e [facility], [place], [address], 4 14:49:03 Medication Orders Symbicort 160 mcg-4.5 mcg/actuati on HFA aerosol inhaler 2023 [facility][id number], [address], [place], [place], [id number], 4 13:01:58 amoxicillin 875 mg tablet 2023 024 [email or web address] [facility] #72538, [address], [place], [place], [id number], 5 16:28:49 Medrol (Bart) 4 mg tablets in a dose pack 2023 024 [facility] #[id number], [address] , [place], [place], [id number], 4 12:35:22 Patient TargetsNo targets recorded. Patient Instructions Encounter Date Encounter Id Patient Instructions Last Modified By Organization Details Last Modified Time 11/25/2023 [id number] A healthy lifestyle: care instructions [email or web address] Not available 12/07/2023 20:13:45 Reason for Referral None Reported. Results Created Date Observation Date Name Description Value Unit Range Abnormal Flag Note LastModifiedBy Organization Detail LastModifiedTime 05/30/2005/31/2024 TSH+F REE T4 TSH 2.480 uIU/m L 0.450- 4.500 Not Available [facility] ([facility]) [address] [place], [address], 05/31/2024 08:31:26 05/30/20 24 05/31/2024 TSH+F REE T4 T4,free(dire ct) 1.00 NG/dL 0.82-1 .77 Not Available [facility] ([facility]) [address] [place], [address], 05/31/2024 08:31:26 05/30/2005/31/2024 COMP. METAB OLIC PANEL (14) glucose 75 mg/dL 70-99 Not Available [facility] ([facility]) [address] [place], [address], 05/31/2024 08:31:27 05/30/20 24 05/31/2024 COMP. METAB OLIC PANEL (14) BUN 10 mg/dL 6-20 Not Available [facility] ([facility]) [address] [place], [address], 05/31/2024 08:31:27 05/30/20 24 05/31/2024 COMP. METAB OLIC PANEL (14) creatinine 0.74 mg/dL 0.57-1 .00 Not Available [facility] ([facility]) [address] [place], [address], 05/31/2024 08:31:27 05/30/20 24 05/31/2024 COMP. METAB OLIC PANEL (14) eGFR 112 mL/mi n/1.7 3 >59 Not Available [facility] ([facility]) [address] [place], [address], 05/31/2024 08:31:27 05/30/2005/31/2024 COMP. METAB OLIC PANEL (14) BUN/creatini ne ratio 14 -23 Not Available [facility] ([facility]) [address] [facility], [place], [address], 05/31/2024 08:31:27 05/30/2005/31/2024 COMP. METAB OLIC PANEL (14) sodium 140 mmol/ L 134-14 4 Not Available [facility] ([facility]) [address] [facility] [place], [address], 05/31/2024 08:31:27 05/30/20 24 05/31/2024 COMP. METAB OLIC PANEL (14) potassium 4.0 mmol/ L 3.5-5. 2 Not Available [facility] ([facility]) [address] [facility], [place], [address], 05/31/2024 08:31:27 05/30/2005/31/2024 COMP. METAB OLIC PANEL (14) chloride 101 mmol/ L 96-106 Not Available [facility] ([facility]) [address] [facility], [place], [address], 05/31/2024 08:31:27 05/30/20 24 05/31/2024 COMP. METAB OLIC PANEL (14) carbon dioxide, total 24 mmol/ L 20-29 Not Available [facility] ([facility]) [address] [facility], [place], [address], 05/31/2024 08:31:27 05/30/2005/31/2024 COMP. METAB OLIC PANEL (14) calcium 9.7 mg/dL 8.7-10 .2 Not Available [facility] ([facility]) [address] [facility] [place], [address], 05/31/2024 08:31:27 05/30/20 05/31/2024 COMP. METAB OLIC PANEL (14) protein, total 7.1 g/dL 6.0-8. 5 Not Available [facility] ([facility]) [address] [facility], [place], [address], 05/31/2024 08:31:27 05/30/20 24 05/31/2024 COMP. METAB OLIC PANEL (14) albumin 4.8 g/dL 4.0-5. 0 Not Available [facility] ([facility]) [address] [facility], [place], [address], 05/31/2024 08:31:27 05/30/2005/31/2024 COMP. METAB OLIC PANEL (14) globulin, total 2.3 g/dL 1.5-4. 5 Not Available [facility] ([facility]) [address] [facility], [place], [address], 05/31/2024 08:31:27 05/30/20 24 05/31/2024 COMP. METAB OLIC PANEL (14) bilirubin, total <0.2 mg/dL 0.0-1. 2 Not Available [facility] ([facility]) [address] [facility], [place], [address], 05/31/2024 08:31:27 05/30/20 24 05/31/2024 COMP. METAB OLIC PANEL (14) alkaline phosphatase 85 IU/L 44-121 Not Available [facility] ([facility]) [address] [facility], [place], [address], 05/31/2024 08:31:27 05/30/20 24 05/31/2024 COMP. METAB OLIC PANEL (14) AST (SGOT) 17 IU/L 0-40 Not Available [facility] ([facility]) [address] [facility], [place], [address], 05/31/2024 08:31:27 05/30/20 24 05/31/2024 COMP. METAB OLIC PANEL (14) ALT (SGPT) 18 IU/L 0-32 Not Available [facility] ([facility]) [address] [facility], [place], [address], 05/31/2024 08:31:27 05/30/20 24 05/30/2024 AMBIG ABBRE [...] ciate your busin ess. Not Available [facility] ([facility]) [address] [facility], [place], [address], 05/31/2024 08:31:29 05/30/20 24 05/31/2024 CBC/D IFF AMBIG UOUS DEFAU LT WBC 10.0 x10e3 /uL 3.4-10 .8 Not Available [facility] ([facility]) [address] [facility], [place], [address], 05/31/2024 08:31:30 05/30/20 24 05/31/2024 CBC/D IFF AMBIG UOUS DEFAU LT RBC 4.83 x10e6 /uL 3.77-5 .28 Not Available [facility] ([facility]) [address] [facility], [place], [address], 05/31/2024 08:31:30 05/30/20 24 05/31/2024 CBC/D IFF AMBIG UOUS DEFAU LT hemoglobin 13.5 g/dL 11.1-1 5.9 Not Available [facility] ([facility]) [address] [facility], [place], [address], 05/31/2024 08:31:30 05/30/2005/31/2024 CBC/D IFF AMBIG UOUS DEFAU LT hematocrit 41.6 % 34.0-4 6.6 Not Available [facility] ([facility]) [address] [facility], [place], [address], 05/31/2024 08:31:30 05/30/2005/31/2024 CBC/D IFF AMBIG UOUS DEFAU LT MCV 86 fL 79-97 Not Available [facility] ([facility]) [address] [place], [address], 05/31/2024 08:31:30 05/30/2005/31/2024 CBC/D IFF AMBIG UOUS DEFAU LT MCH 28.0 pg 26.6-3 3.0 Not Available [facility] ([facility]) [address] [place], [address], 05/31/2024 08:31:30 05/30/2005/31/2024 CBC/D IFF AMBIG UOUS DEFAU LT MCHC 32.5 g/dL 31.5-3 5.7 Not Available [facility] ([facility]) [address] [place], [address], 05/31/2024 08:31:30 05/30/2005/31/2024 CBC/D IFF AMBIG UOUS DEFAU LT RDW 13.6 % 11.7-1 5.4 Not Available [facility] ([facility]) [address] [place], [address], 05/31/2024 08:31:30 10/22/20 24 05/31/2024 CBC/D IFF AMBIG UOUS DEFAU LT platelets 385 x10e3 /uL 150-45 0 Not Available [facility] ([facility]) [address] [facility], [place], [address], 05/31/2024 08:31:30 05/30/2005/31/2024 CBC/D IFF AMBIG UOUS DEFAU LT neutrophils 54 % notest ab. Not Available [facility] ([facility]) [address] [facility], [place], [address], 05/31/2024 08:31:30 05/30/2005/31/2024 CBC/D IFF AMBIG UOUS DEFAU LT lymphs 37 % notest ab. Not Available [facility] ([facility]) [address] [facility], [place], [address], 05/31/2024 08:31:30 05/30/2005/31/2024 CBC/D IFF AMBIG UOUS DEFAU LT monocytes 6 % notest ab. Not Available [facility] ([facility]) [address] [facility], [place], [address], 05/31/2024 08:31:30 05/30/20 24 05/31/2024 CBC/D IFF AMBIG UOUS DEFAU LT eos 2 % notest ab. Not Available [facility] ([facility]) [address] [facility], [place], [address], 05/31/2024 08:31:30 05/30/2005/31/2024 CBC/D IFF AMBIG UOUS DEFAU LT basos 1 % notest ab. Not Available [facility] ([facility]) [address] [facility], [place], [address], 05/31/2024 08:31:30 05/30/20 24 05/31/2024 CBC/D IFF AMBIG UOUS DEFAU LT neutrophils (absolute) 5.5 x10e3 /uL 1.4-7. 0 Not Available [facility] ([facility]) [address] [facility], [place], [address], 05/31/2024 08:31:30 05/30/2005/31/2024 CBC/D IFF AMBIG UOUS DEFAU LT lymphs (absolute) 3.7 x10e3 /uL 0.7-3. 1 above high normal Not Available [facility] ([facility]) [address] [facility], [place], [address], 05/31/2024 08:31:30 05/30/20 24 05/31/2024 CBC/D IFF AMBIG UOUS DEFAU LT monocytes(ab solute) 0.6 x10e3 /uL 0.1-0. 9 Not Available [facility] ([facility]) [address] [facility], [place], [address], 05/31/2024 08:31:30 05/30/2005/31/2024 CBC/D IFF AMBIG UOUS DEFAU LT eos (absolute) 0.2 x10e3 /uL 0.0-0. 4 Not Available [facility] ([facility]) [address] [facility], [place], [address], 05/31/2024 08:31:30 05/30/20 24 05/31/2024 CBC/D IFF AMBIG UOUS DEFAU LT baso (absolute) 0.1 x10e3 /uL 0.0-0. 2 Not Available [facility] ([facility]) [address] [facility], [place], [address], 05/31/2024 08:31:30 05/30/2005/31/2024 CBC/D IFF AMBIG UOUS DEFAU LT immature granulocytes 0 % notest ab. Not Available [facility] ([facility]) [address] [facility], [place], [address], 05/31/2024 08:31:30 05/30/20 24 05/31/2024 CBC/D IFF AMBIG UOUS DEFAU LT immature grans (abs) 0.0 x10e3 /uL 0.0-0. 1 Not Available [facility] ([facility]) [address] [facility], [place], [address], 05/31/2024 08:31:30 05/30/20 24 05/31/2024 CBC/D IFF [...] ciate your busin ess. Not Available [facility] ([facility]) [address] [facility], [place], [address], 05/31/2024 08:31:30 05/30/2005/31/2024 VITAM IN B12 AND FOLAT E vitamin B12 704 pg/mL 232-12 45 Not Available [facility] ([facility]) [address] [facility], [place], [address], 05/31/2024 08:31:31 05/30/2005/31/2024 VITAM IN B12 AND FOLAT E folate (folic acid), serum 10.0 NG/mL >3.0 A serum folat e sidney ntrat ion of less than 3.1 ng/mL is consi dered to repre sent clini harleen defic iency . Not Available [facility] ([facility]) [address] [facility], [place], [address], 05/31/2024 08:31:31 05/30/20 24 05/31/2024 CORTI POOJA cortisol 11.0 ug/dL 6.2-19 .4 Julieta hong Note: The refer ence inter roberto carlos and abby ing for this test is for an AM colle ction . If this is a PM colle ction julieta hong use: Corti pooja PM: 2.3-1 1.9 Not Available [facility] ([facility]) [address] [place], [address], 05/31/2024 08:31:32 05/30/2005/31/2024 TRIIO DOTHY CLARK E (T3), FREE triiodothyro nine (T3), free 2.5 pg/mL 2.0-4. 4 Not Available [facility] ([facility]) [address] [place], [address], 05/31/2024 08:31:33 05/30/2005/31/2024 FE+TI BC+FE R iron bind.cap.(TI BC) 348 ug/dL 250-45 0 Not Available [facility] ([facility]) [address] [place], [address], 05/31/2024 08:31:34 05/30/2005/31/2024 FE+TI BC+FE R UIBC 303 ug/dL 131-42 5 Not Available [facility] ([facility]) [address] [place], [address], 05/31/2024 08:31:34 05/30/2005/31/2024 FE+TI BC+FE R iron 45 ug/dL 27-159 Not Available [facility] ([facility]) [address] [place], [address], 05/31/2024 08:31:34 05/30/2005/31/2024 FE+TI BC+FE R iron saturation 13 % 15-55 below low normal Not Available [facility] ([facility]) [address] [place], [address], 05/31/2024 08:31:34 05/30/20 24 05/31/2024 FE+TI BC+FE R ferritin 49 NG/mL 15-150 Not Available [facility] ([facility]) [address] [facility], [place], [address], 05/31/2024 08:31:34 05/30/20 24 05/31/2024 VITAM IN [...] Jaycob wu DC: [facility] Press . 2. Byron abreu MF, Ad peck [place], Gustavo off-F porfirioar i BARNEY, et al. Evalu ation , treat ment, and preve ntion of vitam in D defic iency : an Endoc rine Socie ty clini harleen pract ice guide line. JCEM. 2010; 96(7) :1911 -30. Not Available [facility] ([facility]) [address] [facility], [place], [address], 05/31/2024 08:31:35 06/07/20 24 05/31/2024 PFT, compl ete No observ ation record ed. [facility] ([facility]) [facility][note 2] [address], [place], [address], 06/07/2024 17:43:02 09/24/19 25 09/24/2024 CT, angio gram, chest , w/ contr ast No observ ation record ed. [email or web address] [place], [place] [address] [facility] [address] [facility], [place], [address], 09/25/2024 09:06:22 Result Notes None recorded. Problems Name Problem SNOMED Code Status Onset Date Resolution Date Notes Provider Name and Address Organization Details Recorded Time Obesity 286166929 Active 2023 JAIME Daley Attn: Accountin g,[address] [facility], [place], [address], [place] - [place] 4 20:13:40 Body mass index 30+ - obesity 450405254 Active 2023 JAIME Daley Attn: Accountin g,[address] [place], [place], [address] [place] [address] 2, [facility] - SIF 4 20:13:40 Mixed anxiety and depressive disorder 181005741 Active 2023 JAIME Daley Attn: Accountin g,[address] [facility], [place], [address], [place] 4 20:13:43 Generalized anxiety disorder 44505133 Active 2023 JAIME Daley Attn: Accountin g,[address] [place], [address], [place] 4 21:53:02 Reactive airway disease 877578769792 Active 2023 JAIME Daley Attn: Accountin g,[address] [facility], [place], [address], [place] 4 21:53:03 Problem Notes None recorded. Procedures Surgical History Date Name Laterality Status Provider Name and Address Organization Details Recorded Time section completed Neeraj Noriega [place] - [place] 11/25/2023 11:22:09 Imaging Results Imaging Date Name Status [facility]Modified by [facility] Details LastModified Time 05/31/2024 PFT, complete completed [facility] (Resp Services) [address] [facility] [address], [address], 06/07/2024 17:43:02 09/24/2024 CT, angiogram, chest, w/ contrast completed [email or web address] [facility] [address], [place], [address], 09/25/2024 09:06:22 Procedure Notes None recorded. Medical Equipment None Reported. Allergies No known drug allergies Medications Name Sig Start Date Stop Date Status Note LastModified by Organization Details LastModified Time amoxicill in 500 mg capsule TAKE 1 CAPSULE BY MOUTH TWICE DAILY FOR 10 DAYS active Not Available Not Available No t Available azithromy wade 250 mg tablet active Not Available Not Available No t Available prednison e 20 mg tablet TAKE [...] (vitamin D2) 1,250 mcg (50,000 unit) capsule TAKE 1 CAPSULE BY MOUTH EVERY WEEK active Not Available Not Available No t Available methylpre dnisolone 4 mg tablets in a [...] Details Last Updated DateTime 4 157.48 cm 80 /min 98 % 98 % 130 mm[Hg] 80 mm[Hg] Neeraj Noriega MA [facility] 10:27:31 Date Recorded Body mass index (BMI) Body weight Provider Name and Address Organization Details Last Updated DateTime 11/25/2023 38.2 kg/m2 85829.81 g JAIME Daley Attn: Accounting,[address] [place], [address], [facility] 11/25/2023 11:04:39 Date Recorded Body height Body mass index (BMI) Body weight Heart rate Oxygen saturation Oxygen saturation in Arterial blood by Pulse oximetry Systolic blood pressure Diastolic blood pressure Provider Name and Address Organization Details Last Updated DateTime 4 157.48 cm 38 kg/m2 08377.4 2 g 88 /min 99 % 99 % 130 mm[Hg] 76 mm[Hg] Vivi Mcmullen MA [facility] 12:38:30 Date Recorded Respiratory rate Provider Name a nd Address Organization Details Last Updated DateTime 01/10/2024 20 /min JAIME Daley Attn: Accounting,[address] [place], [address], [place] - S[facility] 01/10/2024 12:50:40 Social History Question Answer Notes LastModified by Organizat ion Details LastModified Time Tobacco Smoking Status Never Smoker MARK Rucker, [facility] 11/25/2023 10:24:08 Do You Have An [...] Anxious, Or Unable To Sleep At Night)? [id number] Information not available 01/10/2024 Do You Use [...] High Blood Pressure N Atrial Fibrillation N Thyroid Problems N Kidney or Bladder Problems N GI Problems N Depression Y COPD N Blood Clots N Skin Problems N Anemia N Heart Attack (NC) N Diabetes N Anxiety Disorder Y Muscle, Joint, or Bone Problems N Seizures/Epilepsy N Acid Reflux (GERD) N Cancer N Stroke N Asthma Y Allergies Y High Cholesterol N Hepatitis N Liver Disease N Headaches N Osteoporosis N Heart Failure N Gynecological History Statement/Question Response Flow Moderate [...] SNOMED-CT Code Diagnosis ICD10 Code Diagnosis Note [id number] JA[facility] Daley [facility] Sotomayor [address] [place] [address] 11/25/2023 10:15:05 11/25/2023 11:07:59 Acute sinusitis 70989510 J01.90 start amoxil 875mg bid. Dysfunctio n of bilateral eustachian tubes 6084993241 193073 H69.93 start Medrol dose pack. OTC flonase, sudafed PE Cholesterol screening 27 4599453 Z13.220 fasting labs are all due. Diabetes m ellitus screening 472231292 Z13.1 Thyroid di sorder screening 442933876 Z13.29 Long-term drug therapy 288967650 Z79.899 Body mass index 30+ - obesity 740918466 Z68.38 Mixed anxi ety and depressive disorder 084984597 F41.8 stable on sertraline 50mg daily. Obesity 911487708 E66.9 discussed healthy diet, exercise, controllin g carbohydra meghna and added sugars in the diet [id number] JAIME Daley [facility] [address] [place] [address] 01/10/2024 12:18:48 01/10/2024 13:29:59 Reactive airway disease 5526727714 06 J45.909 start symbicort 160/4.5mcg 2 puffs bid. pt endorses hx of reactive airway that has been ongoing wax and wane . refer also for formal PFTs. Generalize d anxiety disorder 32570871 F41.1 pt is very anxious about her health and worries that her symptoms are related to something more involved, though she knows it is likely not. she cannot calm her anxieties. she does have alprazolam for PRN use. continue sertraline 50mg daily. Panic attack 152416316 F 41.0 PRN use of alprazolam 0.25mg bid Health Concerns Section Related Observation LastModified by Organization Detai ls LastModified Time None Recorded Concern Status LastModified by Organization Details LastModified Time None Recorded Advance Directives Directive N: Payers Encounter Date Sequence Insurance Name Policy Number Policy Germain Covered Member ID Germain Member ID Guarantor Name 11/25/2023 1 [facility] [id number] Nkechi Murillo [id number] Nkechi Murillo 01/10/2024 1 [facility] [id number] Nkechi Murillo [id number] Nkechi Murillo Notes Date Note Type Note Provider [...] allergen exposure JAIME Daley Attn: Accounting,[address] [place], [address], [place] 12/07/2023 20:13:59 01/10/2024 text/html Asthma F/UReport ed bypatient.Context: worsening Modifying Factors:allergies Associated Symptoms:no fever; no fatigue;cough;shor tness of breathNotes:onset last week was using old inhaler and got the new one from [employer]. helping some, but this morning the barking cough started like when her asthma flares up. JAIME Daley Attn: Accounting[address] [place], [address], [place] 02/05/2024 21:53:23 OBGyn Episode No OBEpisode recorded.
--- OUTSIDE RECORDS SUMMARY | 2024-09-26 12:02 | XMS_ITS | Clinical Summary ---
Author Organization [facility] Address Replaced by [facility] [address] [place] [address] Care Team Providers Care Tube And Manifold Builder Name Role Phone Idalia Angel MD Primary Care Provider [phone] Allergies No known active allergies Medications desvenlafaxine [...] on file Legal Sex Female 9:17 AM CONTRACT TECHNICAL WRITER Gender Identity Not on file Sexual Orientation Not on file Last Filed Vital Signs Vital Sign Reading Time Taken Comments Blood Pressure 151/88 08/03/2020 9:36 AM CONTRACT TECHNICAL WRITER Pulse 84 08/03/2020 9:36 AM CONTRACT TECHNICAL WRITER Temperature 36.8 C (98.2 F) 08/03/2020 9:36 AM CONTRACT TECHNICAL WRITER Respiratory Rate 16 08/03/2020 9:36 AM CONTRACT TECHNICAL WRITER Oxygen Saturation 98% 08/03/2020 9:36 AM CONTRACT TECHNICAL WRITER Inhaled Oxygen Concentration - - Weight 81.6 kg (180 lb) 08/03/2020 9:36 AM CONTRACT TECHNICAL WRITER Height 154.9 cm (5' 1 ) 08/03/2020 9:36 AM CONTRACT TECHNICAL WRITER Body Mass Index 34.01 08/03/2020 9:36 AM CONTRACT TECHNICAL WRITER Plan of Treatment Health Maintenance Due Date [...] complete this topic Insurance [employer] Care Teams Tube And Manifold Builder Relationship Specialty Start Date End Date Idalia Angel MD [address] [facility] [address] [place] [address] PCP - General ACCOUNTING RECONCILIATION CLERK 08/03/20
--- OUTSIDE RECORDS SUMMARY | 2024-09-26 12:02 | XMS_ITS | Clinical Summary ---
Author Organization [facility] Address [address] [place] [address] Care Team Providers Care Warehouse Attendant Name Role Phone Teresa Cedeno MD Unavailable [phone]- [phone] Teresa Cedeno MD Unavailable [phone]- [phone] Nilda Franz Primary Care Pr ovider Allergies No known active allergies Medications vit 94-faky-emkpy-dha 27mg iron- 800 mcg-250 mg capsule Take [...] more drinks on one occasion? 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 Audit Clerk CYTOLOGY REPORT Note to Patients: This report [...] the details. Patient Name: DEVORAH MADRIGAL Address: [address] [place] [address] Gender: F : 1995 (Age: 26) Service: Location: [facility] : [id number] [facility] #: [id number] Patient Type: [facility] SPECIMEN Taken: 11/04/2021 Reported: 11/09/2021 Physician(s): Teresa [...] Recently Relevant to Health Maintenance Insurance [facility] Address[facility] [address] [place] [address] [facility] Address: [facility] [address] [place] [address] [employer] [facility] [employer] EMPL[employer]EE HEALTH PLANS Address: [facility] [address] [place] [address] Advance Directives For more information, please contact: [phone] * Full Code (Latest Code Status on File) Date Activated Date Inactivated Comments 06/02/2022 4:58 PM 06/06/2022 4:29 PM * Full Code Date Activated Date Inactivated Comments 06/01/2022 5:01 PM 06/02/2022 4:58 PM Full CPR in case of cardiopulmonary arrest Care Teams Warehouse Attendant Relationship Specialty Start Date End Date Nilda Franz PA [address] [place] [address] PCP - General 11/25/23 Teresa Cedeno MD [address] [place] [address] Consulting Physician Obstetrics and Gynecology 06/05/22 Teresa Cedeno MD [address] [place] [address] Consulting Physician Obstetrics and Gynecology 06/11/23
--- OUTSIDE RECORDS SUMMARY | 2024-09-26 12:03 | XMS_ITS | Clinical Summary ---
Author Organization [facility] [employer] Address [address] [place] [address] Care Team Providers Care Communications Intern Name Role Phone Idalia Angel MD Primary Care Provider [phone] Source Comments [facility],non-owned Affiliates and Associated Physician Practices is amultiple site organization consisting of ambulatory clinics and hospital sitesin [place], [place], [place] and [place]. This disclosure is being madepursuant to the Care Everywhere program and may not contain all information available regarding this patient. Last updated 18.[facility] [employer] Allergies No known active allergies Medications * [...] Comments Blood Pressure 112/76 09/17/2019 12:11 PM WEB MOBILE DESIGNER Pulse 94 09/17/2019 12:11 PM WEB MOBILE DESIGNER Temperature 36.9 C (98.4 F) 09/17/2019 12:11 PM WEB MOBILE DESIGNER Respiratory Rate 17 09/17/2019 12:11 PM WEB MOBILE DESIGNER Oxygen Saturation 98% 09/17/2019 12:11 PM WEB MOBILE DESIGNER Inhaled Oxygen Concentration - - Weight 79.4 kg (175 lb) 09/17/2019 12:11 PM WEB MOBILE DESIGNER Height 154.9 cm (5' 1 ) 09/17/2019 12:11 PM WEB MOBILE DESIGNER Body Mass Index 33.07 09/17/2019 12:11 PM WEB MOBILE DESIGNER Plan of Treatment Health Maintenance Due Date [...] age to complete this topic Care Teams Communications Intern Relationship Specialty Start Date End Date Idalia Angel MD PCP - General Quantitative Software Engineer 09/17/19
--- OUTSIDE RECORDS SUMMARY | 2024-09-26 12:03 | XMS_ITS | Patient Health Summary ---
Author Organization [facility] Address [address] [facility] [place] [address] Care Team Providers Care Computer Help Desk Representative Name Role Phone Idalia Angel MD Primary Care Provider [phone] Note from [facility] [place],non-owned Affiliates and Associated Physician Practices is amultiple site organization consisting of ambulatory clinics and hospital sitesin [place], [place], [place] and [place]. This disclosure is being madepursuant to the Care Everywhere program and may not contain all information available regarding this patient. Last updated 18.[facility] Allergies No known active allergies [...] Comments Blood Pressure 112/76 09/17/2019 12:11 PM CONSERVATION OF RESOURCES COMMISSIONER Pulse 94 09/17/2019 12:11 PM CONSERVATION OF RESOURCES COMMISSIONER Temperature 36.9 C (98.4 F) 09/17/2019 12:11 PM CONSERVATION OF RESOURCES COMMISSIONER Respiratory Rate 17 09/17/2019 12:11 PM CONSERVATION OF RESOURCES COMMISSIONER Oxygen Saturation 98% 09/17/2019 12:11 PM CONSERVATION OF RESOURCES COMMISSIONER Inhaled Oxygen Concentration - - Weight 79.4 kg (175 lb) 09/17/2019 12:11 PM CONSERVATION OF RESOURCES COMMISSIONER Height 154.9 cm (5' 1 ) 09/17/2019 12:11 PM CONSERVATION OF RESOURCES COMMISSIONER Body Mass Index 33.07 09/17/2019 12:11 PM CONSERVATION OF RESOURCES COMMISSIONER Procedures * INFLUENZA A+B - POINT OF [...] NASOPHARYNGEAL SWAB / Unknown 09/17/2019 Malika Faulkner [facility] LAB - POINT OF CARE ORDERABLES * (ABNORMAL) STREP A SCREEN - POINT OF CARE (AMB) STL (01/18/2018) Only the most recent of6 resultswithin the time period is included. Pathologist [facility] Strep A Rapid POCT Positive(A) Negative Strep A Internal Control Present Lot # [id number] Expiration Date 07/21/19 Throat ENTIRE THROAT (SURFACE REGION OF NECK) / Unknown 01/18/2018 Malika Faulkner [facility] LAB - POINT OF CARE ORDERABLES * EKG 12-LEAD (06/19/2013 12:30 PM CONSERVATION OF RESOURCES COMMISSIONER) Ventricular Rate 81 BPM [facility] Atrial Rate 81 BPM [facility] P-R Interval 102 ms [facility] QRS Duration ms 92 ms [facility] Q-T Interval ms 396 ms [facility] QTC Calculation (Bezet) 460 ms [facility] Calculated P [place] 13 degrees [facility] Calculated R [place] 62 degrees [facility] Calculated T [place] 26 degrees [facility] Interpretation EKG Sinus rhythm with short ND Otherwise normal ECG No previous ECGs available Confirmed by MD PAO, DOV ([id number]) on 06/19/2013 3:38:10 PM [facility] 06/19/2013 12:3 0 PM CONSERVATION OF RESOURCES COMMISSIONER 06/19/2013 3:38 PM CONSERVATION OF RESOURCES COMMISSIONER Narrative [facility] - 06/19/2013 3:38 PM CONSERVATION OF RESOURCES COMMISSIONER Procedure Note Document, Scanned - 06/19/2013 3:37 PM CST Transcriptions Document, Scanned - 06/19/2013 3:39 PM CST Marlene SANDOVAL-C ECG ORDERABLES [facility] * CXR - PA & LATERAL (06/19/2013 12:03 PM CONSERVATION OF RESOURCES COMMISSIONER) Anatomical Region Laterality Modality Chest Radiographic Melinda ging 06/19/2013 12:0 4 PM CONSERVATION OF RESOURCES COMMISSIONER Impressions 06/19/2013 12:05 PM CONSERVATION OF RESOURCES COMMISSIONER No acute disease in the chest. Narrative 06/19/2013 12:05 PM CONSERVATION OF RESOURCES COMMISSIONER PA AND LATERAL CHEST INDICATION: Cough shortness [...] O RDERABLES * D-DIMER (06/19/2013 11:55 AM CONSERVATION OF RESOURCES COMMISSIONER) D-Dimer 0.43 0 - 0.5 mg/L FEU 06/19/2013 12:13 PM CONSERVATION OF RESOURCES COMMISSIONER [facility] Blood BLOOD SPECIMEN / Unknown 06/19/2013 11:55 AM CONSERVATION OF RESOURCES COMMISSIONER 06/19/2013 11:58 AM CONSERVATION OF RESOURCES COMMISSIONER Narrative [facility] - 06/19/2013 12:13 PM CONSERVATION OF RESOURCES COMMISSIONER The innovance D-dimer assay now in use at [facility], [facility] and [facility] is intended for use as an aid [...] - COAGULATION OR DERABLES Performing Organization Address City/State/[facility] Co de Phone Number [facility] [address] [place] [address] * (ABNORMAL) CBC W AUTO DIFFERENTIAL (06/19/2013 11:55 AM CONSERVATION OF RESOURCES COMMISSIONER) WBC 6.3 4.5 - 11.0 x10^9/L 06/19/2013 12:11 PM [facility] RBC 4.20 4.10 - 5.10 x10^12/L 06/19/2013 12:11 PM [facility] Hemoglobin 12.8 12.0 - 16.0 gm/dL 06/19/2013 12:11 PM [facility] Hematocrit 35.0(L) 36.0 - 47.0 % 06/19/2013 12:11 PM [facility] MCV 83.3 78.0 - 102.0 fl 06/19/2013 12:11 PM [facility] MCH 30.5 25.0 - 35.0 pg 06/19/2013 12:11 PM [facility] MCHC 36.6 31.0 - 37.0 gm/dL 06/19/2013 12:11 PM [facility] Platelet Count 248 100 - 400 x10^9/L 06/19/2013 12:11 PM [facility] RDW-CV 11.7 11.5 - 14.0 % 06/19/2013 12:11 PM [facility] MPV 9.2 6.0 - 9.5 fl 06/19/2013 12:11 PM [facility] Neutrophils % 55.4 31.0 - 78.0 % 06/19/2013 12:11 PM CONSERVATION OF RESOURCES COMMISSIONER [facility] Lymphocytes % 34.7 13.0 - 54.0 % 06/19/2013 12:11 PM CONSERVATION OF RESOURCES COMMISSIONER [facility] Monocytes % 5.9 4.0 - 13.0 % 06/19/2013 12:11 PM CONSERVATION OF RESOURCES COMMISSIONER [facility] Eosinophils % 3.3 0.0 - 8.0 % 06/19/2013 12:11 PM CONSERVATION OF RESOURCES COMMISSIONER [facility] Basophils % 0.5 % 06/19/2013 12:11 PM CONSERVATION OF RESOURCES COMMISSIONER [facility] Immature Granulocytes 0.2 % 06/19/2013 12:11 PM CONSERVATION OF RESOURCES COMMISSIONER [facility] Neutrophil Absolute 3.49 x10^9/L 06/19/2013 12:11 PM CONSERVATION OF RESOURCES COMMISSIONER [facility] Lymphocytes Absolute 2.18 x10^9/L 06/19/2013 12:11 PM CONSERVATION OF RESOURCES COMMISSIONER [facility] Monocytes Absolute 0.37 x10^9/L 06/19/2013 12:11 PM CONSERVATION OF RESOURCES COMMISSIONER [facility] Eosinophils Absolute 0.21 x10^9/L 06/19/2013 12:11 PM CONSERVATION OF RESOURCES COMMISSIONER [facility] Basophils Absolute 0.03 x10^9/L 06/19/2013 12:11 PM CONSERVATION OF RESOURCES COMMISSIONER [facility] Immature Granulocytes Absolute 0.01 x10^9/L 06/19/2013 12:11 PM CONSERVATION OF RESOURCES COMMISSIONER [facility] Blood BLOOD SPECIMEN / Unknown 06/19/2013 11:55 AM CONSERVATION OF RESOURCES COMMISSIONER 06/19/2013 11:58 AM CONSERVATION OF RESOURCES COMMISSIONER Marlene Richard PA-C LAB - HEMATOLOGY ORD ERABLES [facility] [address] [place] [address] * HCG URINE QUALITATIVE - POINT OF CARE (IP) (06/19/2013 11:54 AM CONSERVATION OF RESOURCES COMMISSIONER) HCG Qual Urine Negative Negative [facility] POCT TEST[facility] QC Verified yes Yes [facility] POC T TESTING Urine specimen (specimen) URINE / Unknown 06/19/2013 11:54 AM CONSERVATION OF RESOURCES COMMISSIONER Marlene Richard PA-C LAB - POINT OF CARE ORDERABLES Performing Organization Address City/[facility]/ZIP Co de Phone Number [facility] POCT [facility] [address] [place] [address] Care Teams Computer Help Desk Representative Relationship Specialty Start Date End Date Idalia Angel MD PCP - General Cadmium Liquor Maker 09/17/19
--- OUTSIDE RECORDS SUMMARY | 2024-09-26 12:03 | XMS_ITS | Referral Summary ---
Author Organization [facility] Address [address] [place] [address] Care Team Providers Care Instructional Paraprofessional Name Role Phone Idalia Angel MD Primary Care Provider [phone] Source Comments [facility],non-owned Affiliates and Associated Physician Practices is amultiple site organization consisting of ambulatory clinics and hospital sitesin [place], [place], [place] and [place]. This disclosure is being madepursuant to the Care Everywhere program and may not contain all information available regarding this patient. Last updated 18.[facility] [employer] Allergies No known active allergies Medications * [...] Comments Blood Pressure 112/76 09/17/2019 12:11 PM VALET CASHIER Pulse 94 09/17/2019 12:11 PM VALET CASHIER Temperature 36.9 C (98.4 F) 09/17/2019 12:11 PM VALET CASHIER Respiratory Rate 17 09/17/2019 12:11 PM VALET CASHIER Oxygen Saturation 98% 09/17/2019 12:11 PM VALET CASHIER Inhaled Oxygen Concentration - - Weight 79.4 kg (175 lb) 09/17/2019 12:11 PM VALET CASHIER Height 154.9 cm (5' 1 ) 09/17/2019 12:11 PM VALET CASHIER Body Mass Index 33.07 09/17/2019 12:11 PM VALET CASHIER Plan of Treatment Not on file Care Teams Instructional Paraprofessional Relationship Specialty Start Date End Date Idalia Angel MD PCP - General Sales And Merchandising Associate 09/17/19
[2024-09-26 12:06] VITALS: BP 149/99; PULSE 106; RESP 18; TEMP 36.4; O2SAT 100
--- NOTE | 2024-09-26 13:38 | ECG_ITS ---
Test Date: 2024-09-26 15:15:35 Measurements Intervals [place] Rate: 86 P: 30 ME: 128 QRS: -7 QRSD: 99 T: 4 QT: 347 QTc: 415 Interpretive Statements SINUS RHYTHM MINIMAL Q WAVES- HIGH LATERAL LEADS BORDERLINE ST-T WAVE ABNORMALITY- ANT/INF LEADS BORDERLINE ECG Compared to ECG 09/24/2024 08:59:27 HEART RATE HAS DECREASED Electronically Signed On 09-26-2024 17:43:41 ELECTRONIC INTEGRATED SYSTEMS MECHANIC by Jony Hardy D.O.
--- OUTSIDE RECORDS SUMMARY | 2024-09-26 13:48 | XMS_ITS | Clinical Summary ---
Author Organization [facility] Address [address] [place] [address] Care Team Providers Care Line Production Cook Name Role Phone Teresa Cedeno MD Unavailable [phone] Teresa Cedneo MD Unavailable [phone] Nilda Franz Primary Care Pr ovider Allergies No known active allergies Medications vit 94-gpog-qrgxe-dha 27mg iron- 800 mcg-250 mg capsule Take [...] more drinks on one occasion? Never 06/01/2022 [place] Depression Scale Answer Date Recorded [place] Depression Scale Total 7 06/05/2022 The thought [...] on file Legal Sex Female 2:39 AM RETAIL AIDE Gender Identity Not on file Sexual Orientation [...] in First Stage Delivery Location:This Facil ity ([facility] L AND D PROCEDURE) Last Filed Vital [...] results best viewed via link to PDF [address] [address] Tele: Louise Mensah MD - Certified Registered Locksmith CYTOLOGY REPORT Note to Patients: This report [...] the details. Patient Name: DEVORAH MADRIGAL Address: [address] [place] [address] Gender: F : 1995 (Age: 26) Service: Location: [facility] : [id number] [facility] #: [id number] Patient Type[place] [facility] [place] Taken: 11/04/2021 Reported: [...] Most Recently Relevant to Health Maintenance Insurance [facility] [employer] Address: [facility] [address] [place] [address] [facility] [employer] Address: [facility] [address] [place] [address] [employer] EM[employer]EE [employer] PLANS Address: [facility] [address] [place] [address] Advance Directives For more information, please contact: [phone] * Full Code (Latest Code Status on File) Date Activated Date Inactivated Comments 06/02/2022 4:58 PM 06/06/2022 4:29 PM * Full Code Date Activated Date Inactivated Comments 06/01/2022 5:01 PM 06/02/2022 4:58 PM Full CPR in case of cardiopulmonary arrest Care Teams Line Production Cook Relationship Specialty Start Date End Date Nilda Franz PA [address] [place] [address] PCP - General 11/25/23 Teresa Cedeno MD [address] [place] [address] Consulting Physician Obstetrics and Gynecology 06/05/22 Teresa Cedeno MD [address] [place] [address] Consulting Physician Obstetrics and Gynecology 06/11/23
--- OUTSIDE RECORDS SUMMARY | 2024-09-26 13:48 | XMS_ITS | Clinical Summary ---
Author Organization [facility] [employer] Address [address] [facility] [place] [address] Care Team Providers Care Concrete Form Setter And Finisher Name Role Phone Idalia Angel MD Primary Care Provider [phone] Source Comments [facility],non-owned Affiliates and Associated Physician Practices is amultiple site organization consisting of ambulatory clinics and hospital sitesin [place], [place], [place] and [place]. This disclosure is being madepursuant to the Care Everywhere program and may not contain all information available regarding this patient. Last updated 18.[facility] [employer] Allergies No known active allergies Medications * [...] Comments Blood Pressure 112/76 09/17/2019 12:11 PM POPPED CORN OVEN ATTENDANT Pulse 94 09/17/2019 12:11 PM POPPED CORN OVEN ATTENDANT Temperature 36.9 C (98.4 F) 09/17/2019 12:11 PM POPPED CORN OVEN ATTENDANT Respiratory Rate 17 09/17/2019 12:11 PM POPPED CORN OVEN ATTENDANT Oxygen Saturation 98% 09/17/2019 12:11 PM POPPED CORN OVEN ATTENDANT Inhaled Oxygen Concentration - - Weight 79.4 kg (175 lb) 09/17/2019 12:11 PM POPPED CORN OVEN ATTENDANT Height 154.9 cm (5' 1 ) 09/17/2019 12:11 PM POPPED CORN OVEN ATTENDANT Body Mass Index 33.07 09/17/2019 12:11 PM POPPED CORN OVEN ATTENDANT Plan of Treatment Health Maintenance Due Date [...] age to complete this topic Care Teams Concrete Form Setter And Finisher Relationship Specialty Start Date End Date Idalia Angel MD PCP - General Wiener Packer 09/17/19
--- OUTSIDE RECORDS SUMMARY | 2024-09-26 13:48 | XMS_ITS | Clinical Summary ---
Author Organization [facility] Address [facility] [place] [address] Care Team Providers Care Certified Teacher Assistant Name Role Phone Idalia Angel MD Primary Care Provider [phone] Allergies No known active allergies Medications desvenlafaxine [...] on file Legal Sex Female 9:17 AM BALER OPERATOR Gender Identity Not on file Sexual Orientation Not on file Last Filed Vital Signs Vital Sign Reading Time Taken Comments Blood Pressure 151/88 08/03/2020 9:36 AM BALER OPERATOR Pulse 84 08/03/2020 9:36 AM BALER OPERATOR Temperature 36.8 C (98.2 F) 08/03/2020 9:36 AM BALER OPERATOR Respiratory Rate 16 08/03/2020 9:36 AM BALER OPERATOR Oxygen Saturation 98% 08/03/2020 9:36 AM BALER OPERATOR Inhaled Oxygen Concentration - - Weight 81.6 kg (180 lb) 08/03/2020 9:36 AM BALER OPERATOR Height 154.9 cm (5' 1 ) 08/03/2020 9:36 AM BALER OPERATOR Body Mass Index 34.01 08/03/2020 9:36 AM BALER OPERATOR Plan of Treatment Health Maintenance Due Date [...] complete this topic Insurance [employer] Care Teams Certified Teacher Assistant Relationship Specialty Start Date End Date Idalia Angel MD [address] [facility] [address] [place] [address] PCP - General TELEPHOTO ENGINEER 08/03/20
--- OUTSIDE RECORDS SUMMARY | 2024-09-26 13:48 | XMS_ITS | Referral Summary ---
Author Organization [facility] Address [address] [place] [address] Care Team Providers Care Marking Devices Assembler Name Role Phone Teresa Cedeno MD Unavailable [phone] Teresa Cedeno MD Unavailable [phone] Nilda Franz Primary Care Pr ovider Allergies No known active allergies Medications vit 24-yndl-ubfhe-dha 27mg iron- 800 mcg-250 mg capsule Take [...] more drinks on one occasion? 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 Patient Name: DEVORAH MADRIGAL Address: [address] [place] [address] Gender: F : 1995 (Age: 26) Service: Location: N : [id number] [facility] #: [id number] Patient Type: [facility] SPECIMEN Taken: 11/04/2021 Reported: 11/09/2021 Physician(s): Teresa [...] Most Recently Relevant to Health Maintenance Insurance [facility] [employer] Address: [facility] [address] [place] [address] [facility] [employer] [employer] PLANS Address: [facility] [address] [place] [address] [facility] [employer] [employer] EMPLOYEE Enabled Employment PLANS Address: [facility] [address] [place] [address] Advance Directives For more information, please contact: [phone] * Full Code (Latest Code Status on File) Date Activated Date Inactivated Comments 06/02/2022 4:58 PM 06/06/2022 4:29 PM * Full Code Date Activated Date Inactivated Comments 06/01/2022 5:01 PM 06/02/2022 4:58 PM Full CPR i n case of cardiopulmonary arrest Care Teams Marking Devices Assembler Relationship Specialty Start Date End Date Nilda Franz PA [address] [place] [address] PCP - General 11/25/23 Teresa Cedeno MD [address] [place] [address] Consulting Physician Obstetrics and Gynecology 06/05/22 Teresa Cedeno MD [address] [place] [address] Consulting Physician Obstetrics and Gynecology 06/11/23
--- OUTSIDE RECORDS SUMMARY | 2024-09-26 13:48 | XMS_ITS | Patient Health Summary ---
Author Organization [facility] Address [address] [place] [address] Care Team Providers Care Clinical Research Analyst Name Role Phone Idalia Angel MD Primary Care Provider [phone] Note from [facility],non-owned Affiliates and Associated Physician Practices is amultiple site organization consisting of ambulatory clinics and hospital sitesin [place], [place], [place] and [place]. This disclosure is being madepursuant to the Care Everywhere program and may not contain all information available regarding this patient. Last updated 18.[facility] Allergies No known active allergies Medications * [...] Comments Blood Pressure 112/76 09/17/2019 12:11 PM GRAFFITI CLEANER Pulse 94 09/17/2019 12:11 PM GRAFFITI CLEANER Temperature 36.9 C (98.4 F) 09/17/2019 12:11 PM GRAFFITI CLEANER Respiratory Rate 17 09/17/2019 12:11 PM GRAFFITI CLEANER Oxygen Saturation 98% 09/17/2019 12:11 PM GRAFFITI CLEANER Inhaled Oxygen Concentration - - Weight 79.4 kg (175 lb) 09/17/2019 12:11 PM GRAFFITI CLEANER Height 154.9 cm (5' 1 ) 09/17/2019 12:11 PM GRAFFITI CLEANER Body Mass Index 33.07 09/17/2019 12:11 PM GRAFFITI CLEANER Procedures * INFLUENZA A+B - POINT OF [...] NASOPHARYNGEAL SWAB / Unknown 09/17/2019 Malika Faulkner [facility] - POINT OF CARE ORDERABLES * (ABNORMAL) STREP A SCREEN - POINT OF CARE (AMB) STL (01/18/2018) Only the most recent of6 resultswithin the time period is included. Pathologist [facility] Strep A Rapid POCT Positive(A) Negative Strep A Internal Control Present Lot # [id number] Expiration Date 07/21/19 Throat ENTIRE THROAT (SURFACE REGION OF NECK) / Unknown 01/18/2018 [facility]INT [facility]ARE ORDERABLES * EKG 12-LEAD (06/19/2013 12:30 PM GRAFFITI CLEANER) Ventricular Rate 81 BPM [facility] Atrial Rate 81 BPM [facility] P-R Interval 102 ms [facility] QRS Duration ms 92 ms [facility] Q-T Interval ms 396 ms [facility] QTC Calculation (Bezet) 460 ms [facility] Calculated P [place] 13 degrees [facility] Calculated R [place] 62 degrees [facility] Calculated T [place] 26 degrees [facility] Interpretation EKG Sinus rhythm with short MD Otherwise normal ECG No previous ECGs available Confirmed by MD PAO, DOV ([id number]) on 06/19/2013 3:38:10 PM [facility] 06/19/2013 12:3 0 PM GRAFFITI CLEANER 06/19/2013 3:38 PM GRAFFITI CLEANER Narrative [facility] - 06/19/2013 3:38 PM GRAFFITI CLEANER Procedure Note Document, Scanned - 06/19/2013 3:37 PM CST Transcriptions Document, Scanned - 06/19/2013 3:39 PM CST Marlene SANDOVAL-C ECG ORDERABLES [facility] * CXR - PA & LATERAL (06/19/2013 12:03 PM GRAFFITI CLEANER) Anatomical Region Laterality Modality Chest Radiographic Melinda ging 06/19/2013 12:0 4 PM GRAFFITI CLEANER Impressions 06/19/2013 12:05 PM GRAFFITI CLEANER No acute disease in the chest. Narrative 06/19/2013 12:05 PM GRAFFITI CLEANER PA AND LATERAL CHEST INDICATION: Cough shortness [...] O RDERABLES * D-DIMER (06/19/2013 11:55 AM GRAFFITI CLEANER) D-Dimer 0.43 0 - 0.5 mg/L FEU 06/19/2013 12:13 PM GRAFFITI CLEANER [facility] Blood BLOOD SPECIMEN / Unknown 06/19/2013 11:55 AM GRAFFITI CLEANER 06/19/2013 11:58 AM GRAFFITI CLEANER Narrative [facility] - 06/19/2013 12:13 PM GRAFFITI CLEANER The innovance D-dimer assay now in use at [facility], [facility] and [facility] is intended for use as an aid [...] - COAGULATION OR DERABLES Performing Organization Address City/State/[facility] Co de Phone Number [facility] [address] [place] [address] * (ABNORMAL) CBC W AUTO DIFFERENTIAL (06/19/2013 11:55 AM GRAFFITI CLEANER) WBC 6.3 4.5 - 11.0 x10^9/L 06/19/2013 12:11 PM [facility] RBC 4.20 4.10 - 5.10 x10^12/L 06/19/2013 12:11 PM [facility] Hemoglobin 12.8 12.0 - 16.0 gm/dL 06/19/2013 12:11 PM [facility] Hematocrit 35.0(L) 36.0 - 47.0 % 06/19/2013 12:11 PM [facility] MCV 83.3 78.0 - 102.0 fl 06/19/2013 12:11 PM [facility] MCH 30.5 25.0 - 35.0 pg 06/19/2013 12:11 PM [facility] MCHC 36.6 31.0 - 37.0 gm/dL 06/19/2013 12:11 PM [facility] Platelet Count 248 100 - 400 x10^9/L 06/19/2013 12:11 PM [facility] RDW-CV 11.7 11.5 - 14.0 % 06/19/2013 12:11 PM [facility] MPV 9.2 6.0 - 9.5 fl 06/19/2013 12:11 PM [facility] Neutrophils % 55.4 31.0 - 78.0 % 06/19/2013 12:11 PM GRAFFITI CLEANER [facility] Lymphocytes % 34.7 13.0 - 54.0 % 06/19/2013 12:11 PM GRAFFITI CLEANER [facility] Monocytes % 5.9 4.0 - 13.0 % 06/19/2013 12:11 PM GRAFFITI CLEANER [facility] Eosinophils % 3.3 0.0 - 8.0 % 06/19/2013 12:11 PM GRAFFITI CLEANER [facility] Basophils % 0.5 % 06/19/2013 12:11 PM GRAFFITI CLEANER [facility] Immature Granulocytes 0.2 % 06/19/2013 12:11 PM GRAFFITI CLEANER [facility] Neutrophil Absolute 3.49 x10^9/L 06/19/2013 12:11 PM GRAFFITI CLEANER [facility] Lymphocytes Absolute 2.18 x10^9/L 06/19/2013 12:11 PM GRAFFITI CLEANER [facility] Monocytes Absolute 0.37 x10^9/L 06/19/2013 12:11 PM GRAFFITI CLEANER [facility] Eosinophils Absolute 0.21 x10^9/L 06/19/2013 12:11 PM GRAFFITI CLEANER [facility] Basophils Absolute 0.03 x10^9/L 06/19/2013 12:11 PM GRAFFITI CLEANER [facility] Immature Granulocytes Absolute 0.01 x10^9/L 06/19/2013 12:11 PM GRAFFITI CLEANER [facility] Blood BLOOD SPECIMEN / Unknown 06/19/2013 11:55 AM GRAFFITI CLEANER 06/19/2013 11:58 AM GRAFFITI CLEANER Marlene Richard PA-C LAB - HEMATOLOGY ORD ERABLES [facility] [address] [place] [address] * HCG URINE QUALITATIVE - POINT OF CARE (IP) (06/19/2013 11:54 AM GRAFFITI CLEANER) HCG Qual Urine Negative Negative [facility] QC Verified yes Yes [facility] POC T TESTING Urine specimen (specimen) URINE / Unknown 06/19/2013 11:54 AM GRAFFITI CLEANER Marlene Richard PA-C LAB - POINT OF CARE ORDERABLES Performing Organization Address City/[facility]/ZIP Co de Phone Number [facility] [address] [place] [address] Care Teams Clinical Research Analyst Relationship Specialty Start Date End Date Idalia Angel MD PCP - General Cell Inspector 09/17/19
--- OUTSIDE RECORDS SUMMARY | 2024-09-26 13:48 | XMS_ITS | Referral Summary ---
Author Organization [facility] Address [address] [place] [address] Care Team Providers Care Storeperson Name Role Phone Idalia Angel MD Primary Care Provider [phone] Source Comments [facility],non-owned Affiliates and Associated Physician Practices is amultiple site organization consisting of ambulatory clinics and hospital sitesin [place], [place], [place] and [place]. This disclosure is being madepursuant to the Care Everywhere program and may not contain all information available regarding this patient. Last updated 18.[facility] Interactive Allergies No known active allergies Medications * [...] Comments Blood Pressure 112/76 09/17/2019 12:11 PM ACCOUNTING SYSTEMS MANAGER Pulse 94 09/17/2019 12:11 PM ACCOUNTING SYSTEMS MANAGER Temperature 36.9 C (98.4 F) 09/17/2019 12:11 PM ACCOUNTING SYSTEMS MANAGER Respiratory Rate 17 09/17/2019 12:11 PM ACCOUNTING SYSTEMS MANAGER Oxygen Saturation 98% 09/17/2019 12:11 PM ACCOUNTING SYSTEMS MANAGER Inhaled Oxygen Concentration - - Weight 79.4 kg (175 lb) 09/17/2019 12:11 PM ACCOUNTING SYSTEMS MANAGER Height 154.9 cm (5' 1 ) 09/17/2019 12:11 PM ACCOUNTING SYSTEMS MANAGER Body Mass Index 33.07 09/17/2019 12:11 PM ACCOUNTING SYSTEMS MANAGER Plan of Treatment Not on file Care Teams Storeperson Relationship Specialty Start Date End Date Idalia Angel MD PCP - General Behavior Support Specialist 09/17/19
--- NOTE | 2024-09-26 13:57 | ED.GENADULT ---
HPI - General Adult General Chief complaint: Dizziness Stated complaint: dizzy, lightheaded, palpitations Time Seen by Provider: 09/26/24 13:31 History of Present Illness HPI narrative: 29-year-old female presents emergency department for evaluation for a recurrent episode of lightheaded dizziness and rapid heart rate. Patient was just evaluated at the emergency department on 09/24 for complaint of left-sided back and shoulder pain. Patient states this pain has since improved. Suspicion at that time was that this was pleurisy as patient does have a history of pleurisy. Patient had a chest x-ray that showed no focal infiltrate or effusion and had a CTA showing clear lungs with no evidence of pulmonary embolism. Patient was discharged home with instructions have close follow-up with her physician. 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 Patient did have some associated lightheaded and dizziness with this. Patient states that she did check her heart rate on a pulse ox and it was found to be in the 130s. Upon arrival emergency department patient did have a documented heart rate of 106 but at time of examination is patient's heart rate was in the 80s. Patient is saturating well on room air and in no distress at time of evaluation. Patient denies any significant past medical history. Related Data Allergies Allergy/AdvReac Type Severity Reaction Status Date / Time No Known Allergies Allergy Verified 09/24/24 09:02 Review of Systems Review of Systems: All systems reviewed & are unremarkable except as noted in HPI and below PMFSH Past Medical History Medical History (Updated 09/26/24 @ 15:44 by Osman Mckeon MD) Anxiety Surgical History Surgical History (Updated 09/24/24 @ 10:51 by Alex Salomon MD) No pertinent past surgical history Exam Narrative: APPEARANCE: Well appearing, no pain, no distress, well-nourished. HEAD: normocephalic, atraumatic. EYES: PERRLA/EOMI, conjunctivae clear. NOSE: Normal no drainage EARS:TMS clear with good light reflex. THROAT: Pharynx clear, no exudate. NECK: Supple. No adenopathy, no masses. RESPIRATORY: Airway patent, respirations nonlabored. Clear to auscultation bilaterally, no rales, rhonchi, wheezing. CARDIOVASCULAR: Regular rate and rhythm without murmurs rubs or gallops. ABDOMINAL: Soft, nontender, nondistended, normal bowel sounds MUSCULOSKELETAL: Moves all extremities. Strength/ROM intact, No edema, No calf tenderness. NEURO: Alert. Cranial nerves II through XII intact. Good gait. Good coordination SKIN: Warm, dry. Normal Color PSYCHIATRIC: Normal affect/mood. Course Vital Signs Vital signs: Vital Signs Temperature 97.6 F 09/26/24 12:06 Pulse Rate 106 H 09/26/24 12:06 Respiratory Rate 18 09/26/24 12:06 Blood Pressure 149/99 H 09/26/24 12:06 Pulse Oximetry 100 09/26/24 12:06 Oxygen Delivery Room Air 09/26/24 12:06 Temperature 97.6 F 09/26/24 12:06 Pulse Rate 82 09/26/24 17:04 Respiratory Rate 18 09/26/24 17:04 Blood Pressure 115/67 09/26/24 17:04 Pulse Oximetry 100 09/26/24 17:04 Oxygen Delivery Room Air 09/26/24 12:06 Medical Decision Making [facility] Narrative Medical decision making narrative: 29-year-old female presented emergency department for evaluation for intermittent all palpitations. Patient had an EKG showing normal sinus rhythm. Patient is afebrile but does have a minor leukocytosis of 10.3 hemoglobin of 12.7. No significant abnormalities on the patient's CMP patient's lactic acid and Mag were normal. Patient did have recent CTA showing no acute abnormality. Patient was fitted for a Holter monitor and was advised to increase her water intake, decrease alcohol and decrease caffeine intake. Patient was comfortable the plan for discharge and close follow-up. Patient is anxious in the emergency department so she was provided some Ativan for anxiety control. Patient was negative for influenza RSV and for COVID Differential Diagnosis Differential Diagnosis: Pulmonary embolism, pneumonia, atrial flutter, AFib, sinus tachycardia, anxiety Vital Signs Vital Signs: Vital Signs Temperature 97.6 F 09/26/24 12:06 Pulse Rate 106 H 09/26/24 12:06 Respiratory Rate 18 09/26/24 12:06 Blood Pressure 149/99 H 09/26/24 12:06 Pulse Oximetry 100 09/26/24 12:06 Oxygen Delivery Room Air 09/26/24 12:06 Temperature 97.6 F 09/26/24 12:06 Pulse Rate 82 09/26/24 17:04 Respiratory Rate 18 09/26/24 17:04 Blood Pressure 115/67 09/26/24 17:04 Pulse Oximetry 100 09/26/24 17:04 Oxygen Delivery Room Air 09/26/24 12:06 Lab Data Lab results reviewed: Yes I reviewed the patient's lab results. 09/26/24 14:15 09/26/24 14:15 Labs: Lab Results 09/26/24 09/26/24 Range/Units 14:15 15:02 WBC 10.3 H (4.5-10.0) K/mm3 RBC 4.48 (4.2-5.4) M/mm3 Hgb 12.7 (12.0-15.0) g/dL Hct 38.0 (37.0-47.0) % MCV 84.8 (80-100) fl MCH 28.3 (26-34) pg MCHC 33.4 (32-36) g/dl RDW 14.0 (11.5-14.5) % Plt Count 316 (150-375) k/mm3 MPV 9.3 (7.4-10.4) fl Immature Gran % (Auto) 0.6 H (0-0.5) % Neut % (Auto) 73.8 H (45.5-73.1) % Lymph % (Auto) 17.0 L (18.3-44.2) % [place] % (Auto) 7.4 (2.6-8.5) % Eos % (Auto) 0.9 (0-4.4) % Baso % (Auto) 0.3 (0.2-1.2) % Lymph # (Auto) 1.76 (0.9-3.2) K/mm3 [place] # (Auto) 0.8 H (0.1-0.6) K/mm3 Eos # (Auto) 0.1 (0-0.3) K/mm3 Baso # (Auto) 0.0 (0.0-0.1) K/mm3 Abs Immat Gran (auto) 0.06 H (0.00-0.031) K/mm3 Absolute Neuts (auto) 7.6 H (1.3-6.7) K/mm3 Absolute Nucleated RBC 0.000 (0.0-0.012) K/mm3 Nucleated RBC % 0.0 (0.0-0.2) % Sodium 140 (137-145) mmol/L Potassium 4.5 (3.4-5.0) mmol/L Chloride 105 (98-107) mmol/L Carbon Dioxide 25 (22-30) mmol/L Anion Gap 10 (4-12) mmol/L BUN 10 (7-17) mg/dL Creatinine 0.58 L (0.7-1.0) mg/dL Estim Creat Clear Calc 129 ml/min Estimated GFR > 60 (59 - ) Glucose 86 (65-110) mg/dL Calcium 9.6 (8.4-10.2) mg/dL Magnesium 2.0 (1.6-2.3) mg/dL Total Bilirubin 0.5 (0.2-1.3) mg/dL AST 20 (14-36) U/L ALT 19 (6-35) U/L Alkaline Phosphatase 75 (38-126) U/L Total Protein 8.0 (6.3-8.2) g/dL Albumin 4.6 (3.5-5.1) g/dL POC Urine HCG, Qual Negative (Negative) Influenza A (RT-PCR) Negative (Negative) Influenza B (RT-PCR) Negative (Negative) RSV (RT-PCR) Negative (Negative) SARS-CoV-2 RNA (RT-PCR) Negative (Negative) Discharge Plan Discharge Clinical Impression: Heart palpitations Patient Disposition: Home, Self-Care Condition: Stable Instructions: Antibiotic Form, Heart Palpitations (DC) Additional Instructions: Avoid alcohol, avoid caffeine, drink plenty of fluids. Holter monitor as directed. Continue to have close follow-up with your primary care physician. If you have any worsening symptoms then please call or return to the emergency department. Patient Language: Persian Prescriptions: No Action naproxen 375 mg tablet 375 mg PO BID Qty: 14 0RF Follow-up/Referrals: Oesi,COLIN Munguia [Primary Care Provider] -
[2024-09-26 14:21] LABS: Basophils Percent Auto 0.3 % (0.2-1.2); Eosinophils Absolute Auto 0.1 K/mm3 (0-0.3); Eosinophils Percent Auto 0.9 % (0-4.4); Hemoglobin 12.7 g/dL (12.0-15.0); Immature Granulocyte Absolute 0.06 K/mm3 (0.00-0.031); Immature Granulocyte Percent A 0.6 % (0-0.5); Lymphocytes Absolute Auto 1.76 K/mm3 (0.9-3.2); Mean Corpuscular HGB Conc 33.4 g/dl (32-36); Mean Corpuscular Hemoglobin 28.3 pg (26-34); Mean Corpuscular Volume 84.8 fl (80-100); Mean Platelet Volume 9.3 fl (7.4-10.4); Monocytes Absolute Auto 0.8 K/mm3 (0.1-0.6); Monocytes Percent Auto 7.4 % (2.6-8.5); Neutrophils Absolute Auto 7.6 K/mm3 (1.3-6.7); Neutrophils Percent Auto 73.8 % (45.5-73.1); Platelet Count Result 316 k/mm3 (150-375); Red Blood Count 4.48 M/mm3 (4.2-5.4); White Blood Count 10.3 K/mm3 (4.5-10.0)
[2024-09-26 14:30] LABS: Alanine Aminotransferase 19 U/L (6-35); Albumin Level 4.6 g/dL (3.5-5.1); Alkaline Phosphatase 75 U/L (38-126); Anion Gap 10 mmol/L (4-12); Aspartate Amino Transferase 20 U/L (14-36); Bilirubin,Total 0.5 mg/dL (0.2-1.3); Blood Urea Nitrogen 10 mg/dL (7-17); Calcium 9.6 mg/dL (8.4-10.2); Carbon Dioxide 25 mmol/L (22-30); Chloride 105 mmol/L (98-107); Estimated CRCL calculation 129 ml/min; Estimated Glomerular Filt Rate > 60; Glucose 86 mg/dL (65-110); Potassium 4.5 mmol/L (3.4-5.0); Sodium 140 mmol/L (137-145)
[2024-09-26 14:56] LABS: Influenza A QL RT-PCR Negative (Negative); Influenza B QL RT-PCR Negative (Negative); RSV RNA, RT-PCR Negative (Negative); SARS-CoV-2 RNA PCR Negative (Negative)
[2024-09-26 15:04] LABS: BEDSIDEPREGUCG Negative (Negative)
[2024-09-26 15:25] VITALS: BP 139/82; PULSE 97
[2024-09-26 15:28] VITALS: BP 139/91; PULSE 92
[2024-09-26 15:30] VITALS: BP 150/84; PULSE 96
[2024-09-26] MEDS: LORazepam INJ (*CRX) 2 MG/ML VIAL 1 MG IV PUSH (16:10)
[2024-09-26 17:04] VITALS: BP 115/67; PULSE 82; RESP 18; O2SAT 100
== END 2024-09-26 17:04 | disposition home or self-care (01) ==
PROVIDERS: Emergency Provider Emergency Medicine; PCP Physician Assistant
DX: R00.2 Palpitations (principal); Z20.822 Contact with and (suspected) exposure to COVID-19; F41.9 Anxiety disorder, unspecified
CPT/HCPCS: 36415; 80053; 81025; 83735; 85025; 87637; 93005; 93242; 96374; 99284; J2060